=== PATIENT | female | born 1985 | race Caucasian/White ===

== ENCOUNTER 2018-03-01 10:25 | Emergency (ER) | payer BC, SELFPAY ==
[2018-03-01 10:26] VITALS: BP 118/72; PULSE 85; RESP 18; TEMP 37.7; O2SAT 100; BMI 34.1
--- NOTE | 2018-03-01 10:47 | ED.VISSUMM ---
- ER Visit Summary Date of Service: 03/01/18 Chief Complaint: Left flank pain History of Present Illness: The patient is a 32 F with a history of left flank pain. Associated nausea. No vomiting. No diarrhea. No fever. No dysuria. Patient states she was seen [facility] earlier today. Had a negative urine relation. She denies any hematuria. She denies any trauma. Physical Examination: Well-appearing young female. Vital signs are stable and afebrile. She does not look septic or toxic. She is no acute distress. H EENT exam unremarkable. Neck nontender. Lungs clear to auscultation bilaterally. Heart regular rhythm no murmur. Abdomen soft and nondistended. Normal bowel sounds no peritoneal signs. She does have tenderness in the left upper and left side of the abdomen. No signs of trauma. Normal bowel sounds. No masses. She is moving all 4 extremities. The neurovascular intact. Back nontender. Neurologically she is awake alert without focal motor deficits. Test Results: Seizures white count of 15 normal H&H. No bands. BMP normal. Serum test negative. The patient did not produce any urine. CT of the flank shows left-sided descending colon inflammation and diverticulosis consistent with acute diverticulitis. Read by the radiologist reviewed by me. No perforation. No abscess. I discussed all the test results with the patient. Emergency Department Course and Treatment: Patient with left flank pain with history of kidney stones. CT flank, labs and urinalysis will be obtained. Patient was offered IV pain meds and nausea meds she is reluctant to take anything at this time due to she is driving herself home. Treatment Plan: Cipro p.o. twice daily for 2 weeks. Flagyl p.o. 3 times daily for 2 weeks. Chicken for pain. And Motrin. Call and follow-up with her primary care physician next week. She has a scheduled appointment for a physical. Return if worse. Disposition: Discharge Impression: Acute left flank pain acute diverticulitis of the descending colon This note was generated with [employer] dictation software. It may contain incorrect words, spelling, and punctuation that were not noted in review of the chart prior to signing ED Disposition - Plan for ED Patient: Chief Complaint: Flank Pain Referrals: [facility],Out of [Primary Care Provider] -
[2018-03-01 11:07] LABS: Absolute Lymphocyte Count 1.44 X10^3/ul (0.83-4.51); Absolute Neutrophil Count 12.2 X10^3/uL (2.0-7.7); Basophil# 0.07 X10^3/uL; Basophil% 0.5 % (0-1); Eosinophil# 0.23 X10^3/uL; Eosinophils% 1.5 % (0-5); Hematocrit 40.2 % (37-47); Hemoglobin 14.5 g/dl (12.0-15.0); Lymphocyte # 1.44 X10^3/ul (4.0); Lymphocyte % 9.5 % (19-41); Mean Corp Hgb Conc 36.1 g/gl (32-36); Mean Corpuscular Hgb 30.3 pg (27.0-32.0); Mean Corpuscular Volume 84.1 fL (81-99); Mean Platelet Vol. 9.3 fl (6.2-12.0); Monocyte# 1.12 X10^3/uL; Monocyte% 7.4 % (0-10); Neutrophil # 12.24 X10^3/uL (2.7-7.7); Neutrophil % 80.8 % (47-70); POSITIVE COUNT NO; POSITIVE DIFFERENTIAL NO; POSITIVE MORPHOLOGY NO; Platelet Count 277 K/mm3 (150-450); RBC Distribution Width CV 12.4 % (11.6-14.6); RBC Distribution Width SD 37.3 fl (35.1-43.9); Red Blood Count 4.78 M/mm3 (4.2-5.4); White Blood Count 15.1 K/mm3 (4.4-11.0)
[2018-03-01 11:15] LABS: Anion Gap 6 (5-15); BUN 10 mg/dL (7-18); Calcium,Total 8.8 mg/dL (8.5-10.1); Chloride 103 mmol/L (98-107); Creatinine, Serum 0.71 mg/dL (0.55-1.02); EST Glomerular Filtration Rate 100 mL/min (>60); Est Glom Filt Rate - Afr Amer 121 mL/min (>60); Estimated Creatinine Clearance 89.14 ml/min; Glucose 89 mg/dL (74-106); Potassium 4.1 mmol/L (3.5-5.1); Sodium Level 138 mmol/L (136-145)
[2018-03-01 11:26] LABS: Pregnancy, Serum, hCG Quali. NEGATIVE Negative (0-9 Nonpreg)
--- NOTE | 2018-03-01 12:18 | ED.DEP ---
ED Disposition - Plan for ED Patient: Disposition: Home or Assisted Living Chief Complaint: Flank Pain Instructions: ED Diverticulitis Prescriptions: Hydrocodone/Acetaminophen [Bessie 5-325 Tablet] 1 ea PO Q4H PRN PRN #20 tab PRN Reason: Pain Metronidazole [Flagyl] 500 mg PO Q8H #42 tab Ciprofloxacin [Cipro] 500 mg PO BID #28 tab Referrals: [facility],Out of [Primary Care Provider] - 1 Week Additional Instructions: Call follow-up with your doctor next week. Motrin and Bessie as needed for pain. Cipro twice a day. Flagyl 3 times a day both for the next 2 weeks. Return if feeling a lot worse. Increasing pain.
--- NOTE | 2018-03-01 12:21 | DCINST.ED_ITS ---
ED Disposition - Plan for ED Patient: Disposition: Home or Assisted Living Chief Complaint: Flank Pain Instructions: ED Diverticulitis Prescriptions: Hydrocodone/Acetaminophen [[place] 5-325 Tablet] 1 ea PO Q4H PRN PRN #20 tab PRN Reason: Pain Metronidazole [Flagyl] 500 mg PO Q8H #42 tab Ciprofloxacin [Cipro] 500 mg PO BID #28 tab Referrals: [facility],Out of [Primary Care Provider] - 1 Week Additional Instructions: Call follow-up with your doctor next week. Motrin and [place] as needed for pain. Cipro twice a day. Flagyl 3 times a day both for the next 2 weeks. Return if feeling a lot worse. Increasing pain.
[2018-03-01] MEDS: metroNIDAZOLE 500 MG Tablet PO (12:22)
[2018-03-01] MEDS: Ciprofloxacin 500 MG Tablet PO (12:22)
== END 2018-03-01 12:32 | disposition home or self-care (01) ==
PROVIDERS: Emergency Provider Emergency Medicine
DX: K57.32 Diverticulitis of large intestine without perforation or abscess without bleeding (principal); E03.9 Hypothyroidism, unspecified; Z87.442 Personal history of urinary calculi; Z79.899 Other long term (current) drug therapy
CPT/HCPCS: 74176; 80048; 84703; 85025; 99283

== ENCOUNTER → 2018-04-18 11:00 | Outpatient (CLI) | payer BC, SELFPAY ==
[2018-04-23 14:40] LABS: HPV APTIMA, High Risk Negative (Negative)
== END ==
PROVIDERS: Referring Provider Nurse Practitioner Women's Health; Visit Provider Nurse Practitioner Women's Health
DX: Z12.4 Encounter for screening for malignant neoplasm of cervix (principal)
CPT/HCPCS: 88175; G0145

== ENCOUNTER → 2019-03-18 | Outpatient (CLI) | payer OTHER, SELFPAY ==
[2019-03-18 11:54] VITALS: BMI 33.8
== END | disposition home or self-care (01) ==
LOC: LABSPEC 14:49
PROVIDERS: Referring Provider Nurse Practitioner Women's Health; Visit Provider Nurse Practitioner Women's Health
DX: N89.8 Other specified noninflammatory disorders of vagina (principal)
CPT/HCPCS: 87070; 87205

== ENCOUNTER → 2019-03-21 15:22 | Outpatient (CLI) | payer OTHER, SELFPAY ==
[2019-03-18 11:54] VITALS: BMI 33.8
== END ==
PROVIDERS: Referring Provider Nurse Practitioner Women's Health; Visit Provider Nurse Practitioner Women's Health
DX: R10.2 Pelvic and perineal pain (principal)

== ENCOUNTER → 2020-03-09 16:59 | Outpatient (CLI) | payer OTHER, SELFPAY ==
[2019-07-10 10:17] VITALS: BMI 33.8
[2020-03-09 18:02] LABS: Absolute Lymphocyte Count 2.24 X10^3/uL (0.83-4.51); Absolute Neutrophil Count 6.9 X10^3/uL (2.0-7.7); Basophil# 0.07 X10^3/uL; Basophil% 0.7 % (0-1); Eosinophil# 0.42 X10^3/uL; Eosinophils% 4.1 % (0-5); Hematocrit 42.9 % (37-47); Lymphocyte # 2.24 X10^3/ul (4.0); Lymphocyte % 21.7 % (19-41); Mean Corp Hgb Conc 32.6 g/dL (32-36); Mean Corpuscular Volume 88.8 fL (81-99); Mean Platelet Vol. 9.6 fl (6.2-12.0); Monocyte# 0.67 X10^3/uL; Monocyte% 6.5 % (0-10); NRBC Flagged by Analyzer 0 % (0-5); Neutrophil # 6.86 X10^3/uL (2.7-7.7); Neutrophil % 66.6 % (47-70); Platelet Count 321 K/mm3 (150-450); RBC Distribution Width CV 12.4 % (11.6-14.6); RBC Distribution Width SD 40.3 fl (35.1-43.9); Red Blood Count 4.83 M/mm3 (4.2-5.4); White Blood Count 10.3 K/mm3 (4.4-11.0)
[2020-03-09 18:24] LABS: Vitamin B12 463 pg/mL (211-911); Vitamin D,25 Hydroxy 34.6 ng/mL
[2020-03-09 18:33] LABS: ALB/GLOB Ratio 1.1 RATIO (0.9-2.4); AST(SGOT) 12 U/L (15-37); Alanine Aminotransfer ALT/SGPT 24 U/L (13-56); Albumin, Serum 4.1 g/dL (3.2-5.0); Alkaline Phosphatase 63 U/L (45-117); Anion Gap 4 (5-15); BUN 19 mg/dL (7-18); BUN/Creat Ratio 23.5 RATIO (10-20); Calcium,Total 9.3 mg/dL (8.5-10.1); Chloride 105 mmol/L (98-107); Creatinine, Serum 0.81 mg/dL (0.55-1.02); EST Glomerular Filtration Rate 86 mL/min (>60); Est Glom Filt Rate - Afr Amer 104 mL/min (>60); Globulin 3.6 g/dL (2.2-4.2); Glucose 85 mg/dL (74-106); Potassium 3.6 mmol/L (3.5-5.1); Protein, Total 7.7 g/dL (6.4-8.2); Sodium Level 139 mmol/L (136-145); T4 Free Direct 0.38 ng/dL (0.76-1.46)
[2020-03-10 10:44] LABS: Free T3 1.6 pg/mL (2.18-3.98)
[2020-03-11 16:30] LABS: Thyroglobulin Antibody 1.3 IU/mL (0.0-0.9); Thyroid Peroxidase AB 284 IU/mL (0-34)
== END ==
PROVIDERS: PCP Family Medicine; Referring Provider Family Medicine; Visit Provider Family Medicine
DX: R53.83 Other fatigue (principal); E03.9 Hypothyroidism, unspecified
CPT/HCPCS: 36415; 80053; 82306; 82607; 84439; 84443; 84481; 85025; 86376; 86800

== ENCOUNTER → 2020-04-29 12:04 | Outpatient (CLI) | payer OTHER, SELFPAY ==
[2019-07-10 10:17] VITALS: BMI 33.8
[2020-04-29 15:35] LABS: Free T3 9.4 pg/mL (2.18-3.98)
== END ==
PROVIDERS: PCP Family Medicine; Referring Provider Family Medicine; Visit Provider Family Medicine
CPT/HCPCS: 36415; 84439; 84481

== ENCOUNTER → 2020-05-18 15:10 | Outpatient (CLI) | payer OTHER, SELFPAY ==
[2019-07-10 10:17] VITALS: BMI 33.8
[2020-05-18 17:29] LABS: Absolute Lymphocyte Count 1.61 X10^3/uL (0.83-4.51); Absolute Neutrophil Count 13.7 X10^3/uL (2.0-7.7); Basophil# 0.07 X10^3/uL; Basophil% 0.4 % (0-1); Eosinophil# 0.28 X10^3/uL; Eosinophils% 1.7 % (0-5); Hematocrit 42.9 % (37-47); Hemoglobin 13.9 g/dL (12.0-15.0); Lymphocyte # 1.61 X10^3/ul (4.0); Lymphocyte % 9.7 % (19-41); Mean Corp Hgb Conc 32.4 g/dL (32-36); Mean Corpuscular Hgb 27.9 pg (27.0-32.0); Monocyte# 0.98 X10^3/uL; Monocyte% 5.9 % (0-10); NRBC Flagged by Analyzer 0 % (0-5); Neutrophil # 13.66 X10^3/uL (2.7-7.7); Neutrophil % 81.9 % (47-70); Platelet Count 327 K/mm3 (150-450); RBC Distribution Width CV 11.9 % (11.6-14.6); RBC Distribution Width SD 37.2 fl (35.1-43.9); Red Blood Count 4.99 M/mm3 (4.2-5.4); White Blood Count 16.7 K/mm3 (4.4-11.0)
[2020-05-18 18:00] LABS: ALB/GLOB Ratio 1.1 RATIO (0.9-2.4); AST(SGOT) 20 U/L (15-37); Alanine Aminotransfer ALT/SGPT 35 U/L (13-56); Albumin, Serum 3.9 g/dL (3.2-5.0); Alkaline Phosphatase 93 U/L (45-117); Anion Gap 9 (5-15); BUN 15 mg/dL (7-18); BUN/Creat Ratio 22.7 RATIO (10-20); Chloride 100 mmol/L (98-107); Creatinine, Serum 0.66 mg/dL (0.55-1.02); EST Glomerular Filtration Rate 108 mL/min (>60); Est Glom Filt Rate - Afr Amer 131 mL/min (>60); Globulin 3.5 g/dL (2.2-4.2); Glucose 80 mg/dL (74-106); Potassium 4.3 mmol/L (3.5-5.1); Protein, Total 7.4 g/dL (6.4-8.2); Sodium Level 136 mmol/L (136-145)
== END ==
PROVIDERS: PCP Family Medicine; Referring Provider Family Medicine; Visit Provider Family Medicine
DX: K57.92 Diverticulitis of intestine, part unspecified, without perforation or abscess without bleeding (principal)
CPT/HCPCS: 36415; 80053; 85025

== ENCOUNTER → 2020-05-18 15:47 | Outpatient (CLI) | payer OTHER, SELFPAY ==
[2019-07-10 10:17] VITALS: BMI 33.8
--- NOTE | 2020-05-18 15:50 | CT_ITS ---
STUDY: CT ABDOMEN AND PELVIS WITH CONTRAST REASON FOR EXAM: Female, 34 years old. Pain. Evaluate for diverticulitis. RADIATION DOSAGE (If Supplied By Facility): CTDIvol = ( 15.02 ) mGy, DLP = ( 826.30 ) mGycm TECHNIQUE: Transaxial images were obtained from the dome of the diaphragm to the symphysis pubis with oral contrast. 100 ml of ISOVUE-300 contrast was administered. Sagittal and coronal images were reconstructed. Individualized dose optimization techniques were used for this CT. COMPARISON: None. FINDINGS: The visualized lung bases are clear. The visualized portions of the heart and pericardium are within normal limits. There are no calcified gallstones present. The liver is within normal limits. There are no suspicious hepatic lesions. The spleen is normal in size. The pancreas is within normal limits. The adrenal glands are within normal limits. There are no renal or ureteral stones. There is no hydronephrosis. There are no focal renal lesions. Normal visualized stomach. There is no bowel obstruction. There is an inflamed diverticulum in the distal transverse colon with associated wall thickening and inflammation. This is consistent with acute diverticulitis. The appendix is visualized and appears normal. There is an intrauterine device noted which appears off center within the uterus. The aorta is normal in caliber. There is no abdominal or pelvic free air, free fluid, fluid collection or lymphadenopathy. There are no destructive osseous lesions. CT/Abdomen/Pelvis WITH Contrast IMPRESSION: Acute diverticulitis in the distal transverse colon. No free air, free fluid or fluid collection. Intrauterine device noted which appears off center within the uterus. Further evaluation with ultrasound is recommended to evaluate the position. Electronically Signed: Lincoln Carrillo, at 18:15 EST Tel , Service support ,
== END ==
PROVIDERS: PCP Family Medicine; Referring Provider Family Medicine; Visit Provider Family Medicine
DX: K57.92 Diverticulitis of intestine, part unspecified, without perforation or abscess without bleeding (principal)
CPT/HCPCS: 74177; Q9967

== ENCOUNTER → 2020-05-21 16:41 | Outpatient (CLI) | payer OTHER, SELFPAY ==
[2019-07-10 10:17] VITALS: BMI 33.8
--- NOTE | 2020-05-21 16:45 | US_ITS ---
STUDY: ULTRASOUND OF THE FEMALE PELVIS - COMPLETE REASON FOR EXAM: Female, 34 years old. MALPOSITION OF IUD SEEN ON CT LMP: TECHNIQUE: Transvaginal TECHNICAL QUALITY: Adequate. COMPARISON: CAT scan 05/18/2020 FINDINGS: The uterus is anteverted and is in a midline position. The uterus measures 6.8 x 6.4 x 4 cm. Normal uterine cervix. The endometrium measures 5 mm in thickness, and is hyperechoic. There is no demonstrated endometrial mass. There is no demonstrated myometrial mass. I.U.D. - patient has an IUD however it appears to be within the lower uterine segment The right ovary is visualized. The right ovary measures 3.5 x 3 x 2 cm. There is a cyst measuring 1.5 x 1.3 x 1.2. There is no visualized right adnexal mass or complex lesion. There is normal arterial and normal venous vascularity. The left ovary is visualized. The left ovary measures 3.1 x 3 x 2.6 cm. There is a cyst measuring 1.7 x 1.7 x 1.7 cm. There is no visualized left adnexal mass or complex lesion. There is normal arterial and normal venous vascularity. There is mild fluid in the cul-de-sac. The pre void volume of the bladder was 65.56 ml. US/Transvaginal Non- IMPRESSION: Malpositioned IUD which appears to be within the lower uterine segment. Small bilateral ovarian cysts and mild fluid in the cul-de-sac possibly due to recent ovulation Electronically Signed: Morgan Dorsey MD at 17:48 EST , Service support ,
== END ==
PROVIDERS: PCP Family Medicine; Referring Provider Obstetrics & Gynecology; Visit Provider Obstetrics & Gynecology
DX: T83.32XA Displacement of intrauterine contraceptive device, initial encounter (principal)
CPT/HCPCS: 76830

== ENCOUNTER → 2020-06-21 14:40 | Outpatient (CLI) | payer OTHER, SELFPAY ==
[2020-05-31 14:24] VITALS: BMI 31.6
[2020-06-18 08:56] VITALS: BMI 31.5
--- NOTE | 2020-06-21 14:46 | US_ITS ---
STUDY: ULTRASOUND OF THE PELVIS CLINICAL: Female, 34 years old. PELVIC PAIN, WITH NEW IUD PLACEMENT TECHNIQUE: Transvaginal and transabdominal COMPARISON: None. FINDINGS: Normal uterine size measuring 6.7 x 5.8 x 3.9 cm in maximal craniocaudal dimension. It is retroverted. There are no myometrial masses. Normal endometrial thickness measuring 3 mm. It is hyperechoic There are no endometrial masses, and there is no fluid in the endometrial cavity. An IUD is noted within the lower uterine segment and the uterine cervix. Nabothian cysts. Normal right ovary, measuring 3.6 x 2.7 x 2.0 cm. There are multiple follicles without a dominant cyst. Normal left ovary, measuring 3.3 x 2.6 x 2.5 cm. There are multiple follicles without a dominant cyst. There is no free fluid in the pelvis. The urinary bladder has a volume of 689 cc. US/Transvaginal Non- IMPRESSION: IUD in the lower uterine segment/cervix. Nabothian cysts. Electronically Signed: Anthony Nuñez DO at 23:57 EST Tel [phone], Service support ,
--- NOTE | 2020-06-21 14:46 | US_ITS ---
STUDY: ULTRASOUND OF THE PELVIS CLINICAL: Female, 34 years old. PELVIC PAIN, WITH NEW IUD PLACEMENT TECHNIQUE: Transvaginal and transabdominal COMPARISON: None. FINDINGS: Normal uterine size measuring 6.7 x 5.8 x 3.9 cm in maximal craniocaudal dimension. It is retroverted. There are no myometrial masses. Normal endometrial thickness measuring 3 mm. It is hyperechoic There are no endometrial masses, and there is no fluid in the endometrial cavity. An IUD is noted within the lower uterine segment and the uterine cervix. Nabothian cysts. Normal right ovary, measuring 3.6 x 2.7 x 2.0 cm. There are multiple follicles without a dominant cyst. Normal left ovary, measuring 3.3 x 2.6 x 2.5 cm. There are multiple follicles without a dominant cyst. There is no free fluid in the pelvis. The urinary bladder has a volume of 689 cc. US/Pelvic (Non ) IMPRESSION: IUD in the lower uterine segment/cervix. Nabothian cysts. Electronically Signed: Anthony Nuñez DO at 23:57 EST Tel [phone], Service support ,
== END ==
PROVIDERS: PCP Family Medicine; Referring Provider Obstetrics & Gynecology; Visit Provider Obstetrics & Gynecology
DX: R10.2 Pelvic and perineal pain (principal)
CPT/HCPCS: 76830; 76856

== ENCOUNTER → 2020-06-28 14:30 | Outpatient (CLI) | payer OTHER, SELFPAY ==
[2020-06-22 15:42] VITALS: BMI 31.5
[2020-06-28 18:25] LABS: Free T3 5.4 pg/mL (2.18-3.98); T4 Free Direct 1.31 ng/dL (0.76-1.46)
== END ==
PROVIDERS: PCP Family Medicine; Visit Provider Family Medicine
DX: E03.8 Other specified hypothyroidism (principal)
CPT/HCPCS: 36415; 84439; 84481

== ENCOUNTER 2020-07-06 08:25 | Day surgery (SDC) | payer OTHER, SELFPAY ==
[2020-06-22 15:42] VITALS: BMI 31.5
[2020-06-29 13:16] LABS: Thyroid Stim Hormone (TSH) < 0.01 uIU/mL (0.358-3.74)
[2020-07-05 11:35] LABS: Absolute Lymphocyte Count 1.62 X10^3/uL (0.83-4.51); Absolute Neutrophil Count 3.2 X10^3/uL (2.0-7.7); Basophil# 0.07 X10^3/uL; Basophil% 1.2 % (0-1); Eosinophil# 0.23 X10^3/uL; Eosinophils% 4.1 % (0-5); Hemoglobin 13.8 g/dL (12.0-15.0); Lymphocyte # 1.62 X10^3/ul (4.0); Lymphocyte % 28.8 % (19-41); Mean Corp Hgb Conc 32.9 g/dL (32-36); Mean Corpuscular Volume 85.2 fL (81-99); Monocyte# 0.45 X10^3/uL; NRBC Flagged by Analyzer 0 % (0-5); Neutrophil # 3.24 X10^3/uL (2.7-7.7); Neutrophil % 57.7 % (47-70); Platelet Count 286 K/mm3 (150-450); RBC Distribution Width CV 12.5 % (11.6-14.6); RBC Distribution Width SD 38.7 fl (35.1-43.9); Red Blood Count 4.93 M/mm3 (4.2-5.4); White Blood Count 5.6 K/mm3 (4.4-11.0)
[2020-07-06] VITALS (9 sets, daily range): BP systolic 104–142; BP diastolic 63–92; PULSE 53–84; RESP 16–26; TEMP 36.8–37.1; O2SAT 98–100; BMI 30.6
[2020-07-06 09:01] LABS: Internal QC Validated? YES +Cl - CLEAR BKGD; Pregnancy, Urine Negative Negative
[2020-07-06] MEDS: Lactated Ringers 1,000 ML 100 ML IV ×2 (09:02→11:35)
--- NOTE | 2020-07-06 09:11 | HP.PCM_ITS ---
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 Is patient in pain?: No Allergies codeine Allergy (Verified 06/22/20 15:43) Unknown latex Allergy (Verified 06/22/20 15:43) Rash Medications fluticasone propionate 50 mcg/actuation nasal spray,suspension 1 spray INTRANASAL DAILY 04/18/18 [History Confirmed 06/22/20] fexofenadine 180 mg tablet 180 mg PO DAILY 03/18/19 [History Confirmed 06/22/20] levothyroxine 100 mcg tablet 100 mcg PO DAILY 05/24/20 [History Confirmed 06/22/20] liothyronine 25 mcg tablet 100 mcg PO DAILY tab 05/24/20 [History Confirmed 06/22/20] Is last menstrual period known: No Post menopausal: No Patient : No : No COUNTS INCLUDE 234 BEDS AT THE [facility] Medical History Diverticulitis large intestine (Acute) Diverticulitis (Acute) Thyroid disease (Acute) Surgical History History of open heart surgery (Acute) History of right heart catheterization (Acute) History of tonsillectomy (Acute) Hx of section (Acute) Family History Grandmother Breast cancer Other Diabetes Hypertension Social History (Updated 06/22/20 @ 16:[address] 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 she has had two expulsions now and is wanting permanent control. she has had irregular bleedign and some cramping, dyspareunia. she preivously had heavy periods prior to the iud Pregancy History 2 Elective abortions Hx Para 2 Spontaneous abortions Hx # Term Pregnancies Ectopic pregnancies Hx # Pregnancies Multiple births # of living children Past Pregnancies Del. Date Name GA/Weeks Outcome Route Bth Weight Gen Labor Lgth Anesthesia Del Locatn Provider FOB Unknown 2005 Guille Unknown 2007 Kaizer Unknown 2014 Pan (ADOPTED) ROS Const Constitutional: Denies fatigue, fever(s), headache(s), increased appetite, poor appetite, weight gain or weight loss Cardio Card: Denies chest pain Resp Resp: Denies cough or dyspnea GI GI: Reports as per HPI; denies abdominal pain, constipation, nausea or vomiting : Reports as per HPI; denies difficulty urinating, painful urination, nipple discharge, urinary frequency, urinary incontinence, urinary hesitancy, urinary urgency, vaginal discharge, vaginal dryness, vaginal odor or vaginal itching Skin Skin/Breast: Denies change in hair, breast lump, breast pain, breast skin changes or nipple discharge Exam Const General: cooperative, healthy appearing, comfortable, no acute distress, well developed Nutritional Appearance: average body habitus Orientation: alert HENMT Head: normal to inspection, normocephalic Neck Neck: normal visual inspection, trachea midline Thyroid: thyroid normal Resp Effort & Inspection: normal respiratory effort GI Inspection: normal to inspection, non-distended Palpation: soft, no hepatosplenomegaly General: bladder normal to palpation External Female Exam: normal external appearance, normal appearance of the urethra Urethra: normal appearance of the urethra, normal palpation, no discharge Speculum Exam - Vagina: normal appearance of the vagina, normal vaginal discharge Speculum Exam - Cervix: normal appearance of the cervix, nontender Bimanual Exam- Vagina & Uterus: normal bimanual exam, uterine size normal, bladder normal to palpation, uterine shape normal, No cervical tenderness, uterine mobility normal, uterine consistency normal, normal cervical palpation, uterus non-tender Bimanual Exam- Adnexa, other: normal adnexae, adnexae mobile, no adnexal masses, pelvic support normal Pelvic Support: normal Skin General: no rashes or lesions noted Office Procedures IUD Removal IUD Removal Details: Sign out documentation: Completed Procedure: Speculum placed in vagina, IUD string visualized and grasped with ring forceps. IUD easily removed in its entirety and patient tolerated well. Assessment & Plan Problems 1. Sterilization Z30.2 plan laparoscopic bilateral salpingectomy Plan After discussing the patient's diagnosis and treatment plan options, patient wishes to proceed with surgical management. I have discussed with the patient the risks, benefits, and alternatives of the procedure which include but are not limited to risks of anesthesia, bleeding, infection, possible damage to bowel, bladder, or surrounding vasculature which could lead to additional surgery to evaluate any complications. Patient agrees to procedure and wishes to proceed. ACOG/uptodate references given for additional information regarding procedure. Orders Orders: IUD Removal Today Z30.432 Coding Level of Care Code Off vis,est,level 4 Diagnoses Sterilization Z30.2 UPDATE- I have seen the patient and performed any clinically relevant updates to the history and physical exam. Jamia Fine MD
--- NOTE | 2020-07-06 10:00 | FALS_PTH ---
PATIENT: YAMILA RAMOS [place] [facility] [id number] AGE/SX: 34/F ROOM: RE07/06/[address]: Dr. Jamia Fine MD : [id number] BED: DIS: 07/06/2020 SPEC #: [id number] RECD: 07/06/20 12:46 STATUS: DEXTER REQ #: [id number] AUGIE: 07/06/20 10:[address]: Jamia Fine DEPT: SURGICAL PATHOLOGY RECD BY: Danielle Morley ENTERED: 07/06/20 13:10 SP TYPE: FALL TUBES OTHR DR: Dr. Isra Jacobsen MD Tissues: Fallopian tube Procedures: Surgery Specimen Level II HEADER OPERATION: Laparoscopic salpingectomy PRE-OP DIAGNOSIS: Sterilization TISSUE SUBMITTED: Bilateral fallopian tubes MICROSCOPIC DIAGNOSIS Bilateral fallopian tubes, salpingectomy: Bilateral fallopian tubes including fimbrial ends, no pathologic diagnosis. SJ:natasha 07/07/20 MICROSCOPIC DESCRIPTION Slides are reviewed. GROSS DESCRIPTION Received in fixative is one container labeled with the patient's name and designated bilateral fallopian tubes. The specimen consists of bilateral fallopian tubes including fimbrial ends measuring 4 cm in length and 0.6 cm in diameter and 4.5 cm in length and 0.5 cm in diameter. The fallopian tubes are not identified as right or left. Sections reveal unremarkable cut surfaces. [employer] P[employer] Inspector sections are submitted in two cassettes with each cassette containing one fallopian tube. / IGNACIO:natasha 07/06/20 TC:4 CPT: 46757 x2
--- NOTE | 2020-07-06 10:25 | OP.PCM_ITS ---
Problem List (1) Diverticulitis large intestine Status: Acute Qualifiers: (2) Sterilization Status: Acute Comment: plan laparoscopic bilateral salpingectomy Report of Operation Date of Procedure: 07/06/20 Pre-Operative Diagnosis: sterilization Post-Operative Diagnosis: same Surgery/Procedure Performed:: laparoscopic bilateral salpingectomy Description of Surgical Findings:: nl tubes ovaries uterus gauger delivery: Frandy Helton Type of Anesthesia:: General Special Medications: none Specimen's removed: tubes Drains: none Estimated Blood Loss (mL): 25 Fluids Replaced: crystalloid Description of Procedure: Patient was taken in the operating room and was placed under general anesthesia was prepped and draped in normal sterile fashion in the dorsal lithotomy position. Bladder was drained of clear urine and SCDs were on preoperatively. Uterus was sounded and a uterine manipulator was placed after dilating. Attention was then paid to the abdominal portion of the procedure and the umbilicus was elevated with towel clamps and injected with Marcaine and after a 5 mm incision was made and the Veress needle was entered into the abdomen confirmed to be intra-abdominal with a low opening pressure of less than 5 mmHg. Abdomen was insufflated with CO2 gas and a 5 mm optical trocar was placed under direct visualization. 5 mm ports were placed in the LLQ and suprapubically under direct visualization. Uterus was well visualized and bilateral fallopian tubes identified and bilateral tubes were elevated and transecting across the mesosalpinx and the attachment to the uterine corpus bilaterally the tubes were removed without complication. Excellent hemostasis was noted. Fallopian tubes were removed through the lower port sites without complication. Liver and upper abdomen were visualized notably within normal limits and no other gross abnormalities were seen in the abdomen. All instruments removed from the abdomen after gas was desufflated. Port sites were closed with 3-0 Monocryl Steri's and op sites were applied. All instruments removed from the vagina and patient was awoken and taken recovery in stable condition. Grafts/Implants Used: no - Complications none Multi Select Codes - Urinary/Genital Urinary/Genital CPT Codes: 72594 Laproscopic BS/O
--- NOTE | 2020-07-06 10:27 | DCINST_ITS ---
Discharge Diet: No Restrictions - Increase fluid intake for the next 48 hours. Discharge Activity: Return to Normal Activity, May Drive - when you are no longer taking narcotic pain medications., May Shower, May Take a Tub Bath - in 7 days Additional Activity Instructions:: Ambulate often the next week after surgery. Nothing in the vagina for 5 days. Call your doctor if your incision/area has: Continuous Slow Oozing, Sudden Increased Bleeding, Increased Pain/ Swelling, Increased Redness, Foul Smelling Discharge Call your doctor if you observe: Fever of 101 or Higher Allergies/Adverse Reactions: Allergies codeine Allergy (Verified 06/29/20 11:11) Unknown latex Allergy (Verified 06/29/20 11:11) Rash Medications to take at Discharge fluticasone propionate 50 mcg/actuation nasal spray,suspension 1 spray INTRANASAL DAILY PRN 04/18/18 fexofenadine 180 mg tablet 180 mg PO PRN PRN 03/18/19 levothyroxine 100 mcg tablet 100 mcg PO DAILY 05/24/20 liothyronine 25 mcg tablet 25 mcg PO DAILY tab 05/24/20 Inulin/Chromium Picolinate [Fiber Gummies] 1 ea PO DAILY 06/29/20 Naproxen [Naprosyn] 250 - 500 mg PO Q8H PRN PRN #30 tab 07/06/20 Oxycodone HCl/Acetaminophen [Percocet 5-325] 1 - 2 tablet PO Q6H PRN PRN 7 Days #15 tablet 07/06/20 The following prescriptions were given: Naproxen [Naprosyn] 250 - 500 mg PO Q8H PRN PRN #30 tab PRN Reason: MILD PAIN Transmission Status: Pending to [facility] Oxycodone HCl/Acetaminophen [Percocet 5-325] 1 - 2 tablet PO Q6H PRN PRN 7 Days #15 tablet PRN Reason: Pain Transmission Status: Sent to [facility] Primary Care Physician: Isra Jacobsen MD [Primary Care Provider] - Test Results: Test results from this visit will be discussed in further detail at your follow- up appointment, if applicable. Please Follow Up With: Jamia Fine MD - [phone]
[2020-07-06] MEDS: Bupivacaine 0.25% 30 ML Vial (10:40)
[2020-07-06] MEDS: Lubricating Jelly 60 GM Tube 30 GM TOPICAL (10:40)
== END 2020-07-06 13:31 | disposition home or self-care (01) ==
LOC: SDC 08:25 → AC 08:26
PROVIDERS: Anesthesiology; PCP Family Medicine; Referring Provider Family Medicine; Visit Provider Obstetrics & Gynecology
PROC: (CPT 58661; principal; 2020-07-06 09:45)
DX: Z30.2 Encounter for sterilization (principal); N92.0 Excessive and frequent menstruation with regular cycle; Z20.828 Contact with and (suspected) exposure to other viral communicable diseases; E06.9 Thyroiditis, unspecified; Z87.19 Personal history of other diseases of the digestive system; Z87.442 Personal history of urinary calculi; Z79.899 Other long term (current) drug therapy; Z87.891 Personal history of nicotine dependence
CPT/HCPCS: 00840; 58661; 36415; 81025; 84443; 85025; 86850; 86900; 86901; 87426; 88302; C9803; J7120; J2405

== ENCOUNTER → 2020-09-30 16:07 | Outpatient (CLI) | payer OTHER, SELFPAY ==
[2020-09-30 16:07] VITALS: BMI 31.5
[2020-09-30 18:20] LABS: Free T3 2.3 pg/mL (2.18-3.98); T4 Free Direct 1.14 ng/dL (0.76-1.46)
== END ==
PROVIDERS: PCP Family Medicine; Referring Provider Family Medicine; Visit Provider Family Medicine
DX: E03.8 Other specified hypothyroidism (principal)
CPT/HCPCS: 36415; 84439; 84443; 84481

== ENCOUNTER → 2021-01-04 16:41 | Outpatient (CLI) | payer OTHER, SELFPAY ==
[2020-09-30 16:07] VITALS: BMI 31.5
[2021-01-04 18:37] LABS: Free T3 2.2 pg/mL (2.18-3.98); T4 Free Direct 1.03 ng/dL (0.76-1.46); Thyroid Stim Hormone (TSH) 7.49 uIU/mL (0.358-3.74)
== END ==
PROVIDERS: PCP Family Medicine; Referring Provider Family Medicine; Visit Provider Family Medicine
DX: E03.8 Other specified hypothyroidism (principal)
CPT/HCPCS: 36415; 84439; 84443; 84481

== ENCOUNTER → 2021-04-06 12:15 | Outpatient (CLI) | payer OTHER, SELFPAY ==
[2021-04-06 15:20] LABS: Absolute Lymphocyte Count 1.65 X10^3/uL (0.83-4.51); Basophil# 0.09 X10^3/uL; Eosinophils% 2.3 % (0-5); Hematocrit 43.9 % (37-47); Hemoglobin 14.5 g/dL (12.0-15.0); Lymphocyte # 1.65 X10^3/ul (0.83-4.51); Lymphocyte % 19.1 % (19-41); Mean Corpuscular Hgb 29.2 pg (27.0-32.0); Mean Corpuscular Volume 88.3 fL (81-99); Mean Platelet Vol. 9.8 fl (6.2-12.0); Monocyte# 0.64 X10^3/uL; Monocyte% 7.4 % (0-10); NRBC Flagged by Analyzer 0 % (0-5); Neutrophil # 6.02 X10^3/uL (2.7-7.7); Neutrophil % 69.9 % (47-70); Platelet Count 342 K/mm3 (150-450); RBC Distribution Width CV 12.3 % (11.6-14.6); Red Blood Count 4.97 M/mm3 (4.2-5.4); White Blood Count 8.6 K/mm3 (4.4-11.0)
[2021-04-06 15:39] LABS: AST(SGOT) 27 U/L (15-37); Alanine Aminotransfer ALT/SGPT 46 U/L (13-56); Alkaline Phosphatase 62 U/L (45-117); Anion Gap 4 (5-15); BUN 21 mg/dL (7-18); Calcium,Total 8.9 mg/dL (8.5-10.1); Chloride 104 mmol/L (98-107); Cholesterol 245 mg/dL (200); Creatinine, Serum 0.88 mg/dL (0.55-1.02); EST Glomerular Filtration Rate 78 mL/min (>60); Est Glom Filt Rate - Afr Amer 94 mL/min (>60); Glucose 94 mg/dL (74-106); High Density Lipoprotein 60 mg/dL; Potassium 4.1 mmol/L (3.5-5.1); Sodium Level 136 mmol/L (136-145); T4 Free Direct 1.42 ng/dL (0.76-1.46); Thyroid Stim Hormone (TSH) 1.16 uIU/mL (0.358-3.74); Triglycerides 103 mg/dL; Very Low Density Lipoprotein 21 mg/dL (5-40)
== END ==
PROVIDERS: PCP Family Medicine; Referring Provider Family Medicine; Visit Provider Family Medicine
DX: E03.8 Other specified hypothyroidism (principal)
CPT/HCPCS: 36415; 80053; 80061; 84439; 84443; 85025

== ENCOUNTER 2021-06-03 12:56 | Outpatient (CLI) | payer OTHER, SELFPAY ==
[2021-06-03] MEDS: 0.9% Saline Lock 10 ML Syringe IV (13:18)
[2021-06-03 13:24] VITALS: BP 124/74; PULSE 59; RESP 18; TEMP 36.7; O2SAT 100; BMI 32.8
[2021-06-03 14:06] VITALS: BP 105/68; PULSE 55; RESP 16; TEMP 37.1; O2SAT 99
[2021-06-03 15:01] VITALS: BP 117/78; PULSE 56; RESP 16; TEMP 37.1; O2SAT 98
== END 2021-06-03 15:06 | disposition home or self-care (01) ==
LOC: MS3OUT 12:57 → MS3 12:58
PROVIDERS: PCP Family Medicine; Referring Provider Nurse Practitioner Adult Health; Visit Provider Nurse Practitioner Adult Health
DX: Z23 Encounter for immunization (principal); U07.1 COVID-19
CPT/HCPCS: J7050; M0245; Q0245; A4216

== ENCOUNTER 2021-09-29 13:40 | Outpatient (CLI) | payer OTHER, SELFPAY ==
[2021-09-29 15:15] LABS: Absolute Neutrophil Count 12.1 X10^3/uL (2.0-7.7); Basophil% 0.7 % (0-1); Eosinophil# 0.18 X10^3/uL; Eosinophils% 1.2 % (0-5); Hematocrit 41.7 % (37-47); Hemoglobin 14.2 g/dL (12.0-15.0); Lymphocyte % 10.6 % (19-41); Mean Corp Hgb Conc 34.1 g/dL (32-36); Mean Corpuscular Hgb 29.4 pg (27.0-32.0); Mean Corpuscular Volume 86.3 fL (81-99); Mean Platelet Vol. 9.6 fl (6.2-12.0); Monocyte# 1.03 X10^3/uL; Monocyte% 6.8 % (0-10); NRBC Flagged by Analyzer 0 % (0-5); Neutrophil # 12.09 X10^3/uL (2.7-7.7); Neutrophil % 80.3 % (47-70); Platelet Count 324 K/mm3 (150-450); RBC Distribution Width CV 12.2 % (11.6-14.6); RBC Distribution Width SD 38.5 fl (35.1-43.9); Red Blood Count 4.83 M/mm3 (4.2-5.4); White Blood Count 15.1 K/mm3 (4.4-11.0)
[2021-09-29 16:28] LABS: AST(SGOT) 13 U/L (15-37); Alanine Aminotransfer ALT/SGPT 29 U/L (13-56); Albumin, Serum 4.1 g/dL (3.2-5.0); Alkaline Phosphatase 84 U/L (45-117); Anion Gap 6 (5-15); BUN 15 mg/dL (7-18); BUN/Creat Ratio 19.2 RATIO (10-20); Calcium,Total 9.2 mg/dL (8.5-10.1); Chloride 100 mmol/L (98-107); Cholesterol 224 mg/dL (200); Creatinine, Serum 0.78 mg/dL (0.55-1.02); EST Glomerular Filtration Rate 88 mL/min (>60); Est Glom Filt Rate - Afr Amer 107 mL/min (>60); Globulin 4.2 g/dL (2.2-4.2); Glucose 70 mg/dL (74-106); High Density Lipoprotein 58 mg/dL; Protein, Total 8.3 g/dL (6.4-8.2); Sodium Level 134 mmol/L (136-145); T4 Free Direct 2.03 ng/dL (0.76-1.46); Thyroid Stim Hormone (TSH) 0.18 uIU/mL (0.358-3.74); Triglycerides 67 mg/dL; Very Low Density Lipoprotein 13 mg/dL (5-40)
== END 2021-09-29 23:59 | disposition home or self-care (01) ==
LOC: MFPLAB 13:41
PROVIDERS: PCP Family Medicine; Referring Provider Family Medicine; Visit Provider Family Medicine
DX: E66.9 Obesity, unspecified (principal); E03.8 Other specified hypothyroidism; E78.5 Hyperlipidemia, unspecified
CPT/HCPCS: 36415; 80053; 80061; 84439; 84443; 85025

== ENCOUNTER → 2021-12-28 | Outpatient (CLI) | payer OTHER, SELFPAY ==
[2021-12-28 15:36] LABS: ALB/GLOB Ratio 1.1 RATIO (0.9-2.4); AST(SGOT) 21 U/L (15-37); Alanine Aminotransfer ALT/SGPT 31 U/L (13-56); Alkaline Phosphatase 63 U/L (45-117); Anion Gap 8 (5-15); BUN 15 mg/dL (7-18); Calcium,Total 8.9 mg/dL (8.5-10.1); Chloride 100 mmol/L (98-107); Cholesterol 219 mg/dL (200); Creatinine, Serum 0.94 mg/dL (0.55-1.02); EST Glomerular Filtration Rate 71 mL/min (>60); Est Glom Filt Rate - Afr Amer 86 mL/min (>60); Globulin 3.5 g/dL (2.2-4.2); Glucose 89 mg/dL (74-106); High Density Lipoprotein 48 mg/dL; Potassium 4.4 mmol/L (3.5-5.1); Protein, Total 7.5 g/dL (6.4-8.2); Sodium Level 137 mmol/L (136-145); T4 Free Direct 1.02 ng/dL (0.76-1.46); Thyroid Stim Hormone (TSH) 2.75 uIU/mL (0.358-3.74); Triglycerides 104 mg/dL; Very Low Density Lipoprotein 21 mg/dL (5-40)
== END | disposition home or self-care (01) ==
LOC: MFPLAB 11:53
PROVIDERS: PCP Family Medicine; Referring Provider Family Medicine; Visit Provider Family Medicine
DX: E78.5 Hyperlipidemia, unspecified (principal); E03.8 Other specified hypothyroidism
CPT/HCPCS: 36415; 80053; 80061; 84439; 84443

== ENCOUNTER → 2022-07-20 | Outpatient (CLI) | payer OTHER, SELFPAY ==
[2022-07-20 12:20] LABS: Absolute Lymphocyte Count 1.73 X10^3/uL (0.83-4.51); Absolute Neutrophil Count 4.7 X10^3/uL (2.0-7.7); Basophil# 0.05 X10^3/uL; Basophil% 0.7 % (0-1); Eosinophil# 0.29 X10^3/uL; Eosinophils% 3.9 % (0-5); Hematocrit 39.8 % (37-47); Hemoglobin 13.4 g/dL (12.0-15.0); Lymphocyte # 1.73 X10^3/ul (0.83-4.51); Lymphocyte % 23.2 % (19-41); Mean Corp Hgb Conc 33.7 g/dL (32-36); Mean Corpuscular Hgb 29.5 pg (27.0-32.0); Mean Corpuscular Volume 87.7 fL (81-99); Mean Platelet Vol. 9.9 fl (6.2-12.0); Monocyte# 0.65 X10^3/uL; Monocyte% 8.7 % (0-10); NRBC Flagged by Analyzer 0 % (0-5); Neutrophil # 4.71 X10^3/uL (2.7-7.7); Neutrophil % 63.2 % (47-70); Platelet Count 271 K/mm3 (150-450); RBC Distribution Width CV 12.5 % (11.6-14.6); RBC Distribution Width SD 39.8 fl (35.1-43.9); Red Blood Count 4.54 M/mm3 (4.2-5.4); White Blood Count 7.5 K/mm3 (4.4-11.0)
[2022-07-20 13:05] LABS: ALB/GLOB Ratio 1.2 RATIO (0.9-2.4); AST(SGOT) 15 U/L (15-37); Alanine Aminotransfer ALT/SGPT 26 U/L (13-56); Albumin, Serum 3.8 g/dL (3.2-5.0); Alkaline Phosphatase 60 U/L (45-117); Anion Gap 5 (5-15); BUN 14 mg/dL (7-18); BUN/Creat Ratio 18.8 RATIO (10-20); Calcium,Total 8.9 mg/dL (8.5-10.1); Chloride 106 mmol/L (98-107); Cholesterol 257 mg/dL (200); Creatinine, Serum 0.74 mg/dL (0.55-1.02); EST Glomerular Filtration Rate 93 mL/min (>60); Est Glom Filt Rate - Afr Amer 112 mL/min (>60); Globulin 3.3 g/dL (2.2-4.2); Glucose 92 mg/dL (74-106); High Density Lipoprotein 51 mg/dL; Potassium 4.2 mmol/L (3.5-5.1); Protein, Total 7.1 g/dL (6.4-8.2); Sodium Level 138 mmol/L (136-145); T4 Free Direct 1.11 ng/dL (0.76-1.46); Thyroid Stim Hormone (TSH) 4.76 uIU/mL (0.358-3.74); Triglycerides 100 mg/dL; Very Low Density Lipoprotein 20 mg/dL (5-40)
== END | disposition home or self-care (01) ==
LOC: MFPLAB 11:16
PROVIDERS: PCP Family Medicine; Visit Provider Family Medicine
DX: E78.5 Hyperlipidemia, unspecified (principal); E03.8 Other specified hypothyroidism
CPT/HCPCS: 36415; 80053; 80061; 84439; 84443; 85025

== ENCOUNTER → 2022-08-02 | Outpatient (CLI) | payer OTHER, SELFPAY ==
[2022-08-07 18:32] LABS: HPV APTIMA, High Risk Negative (Negative)
== END | disposition home or self-care (01) ==
LOC: LABSPEC 15:03
PROVIDERS: PCP Family Medicine; Referring Provider Registered Nurse; Visit Provider Registered Nurse
DX: Z01.419 Encounter for gynecological examination (general) (routine) without abnormal findings (principal)
CPT/HCPCS: 87624; 88175; G0145

== ENCOUNTER → 2022-11-07 | Outpatient (CLI) | payer BC, SELFPAY ==
[2022-11-07 09:55] LABS: Absolute Lymphocyte Count 2.06 X10^3/uL (0.83-4.51); Absolute Neutrophil Count 5.5 X10^3/uL (2.0-7.7); Basophil# 0.13 X10^3/uL; Basophil% 1.5 % (0-1); Eosinophil# 0.35 X10^3/uL; Lymphocyte # 2.06 X10^3/ul (0.83-4.51); Lymphocyte % 23.7 % (19-41); Mean Corp Hgb Conc 32.6 g/dL (32-36); Mean Corpuscular Hgb 28.5 pg (27.0-32.0); Mean Corpuscular Volume 87.6 fL (81-99); Mean Platelet Vol. 9.5 fl (6.2-12.0); Monocyte# 0.59 X10^3/uL; Monocyte% 6.8 % (0-10); NRBC Flagged by Analyzer 0 % (0-5); Neutrophil # 5.52 X10^3/uL (2.7-7.7); Neutrophil % 63.5 % (47-70); Platelet Count 307 K/mm3 (150-450); RBC Distribution Width CV 12.7 % (11.6-14.6); RBC Distribution Width SD 40.8 fl (35.1-43.9); Red Blood Count 4.91 M/mm3 (4.2-5.4); White Blood Count 8.7 K/mm3 (4.4-11.0)
[2022-11-07 10:23] LABS: AST(SGOT) 25 U/L (15-37); Alanine Aminotransfer ALT/SGPT 45 U/L (13-56); Albumin, Serum 3.9 g/dL (3.2-5.0); Alkaline Phosphatase 63 U/L (45-117); Anion Gap 3 (5-15); BUN 16 mg/dL (7-18); BUN/Creat Ratio 20.5 RATIO (10-20); Calcium,Total 8.8 mg/dL (8.5-10.1); Chloride 103 mmol/L (98-107); Cholesterol 202 mg/dL (200); Creatinine, Serum 0.78 mg/dL (0.55-1.02); EST Glomerular Filtration Rate 88 mL/min (>60); Est Glom Filt Rate - Afr Amer 106 mL/min (>60); Globulin 3.8 g/dL (2.2-4.2); Glucose 91 mg/dL (74-106); High Density Lipoprotein 55 mg/dL; Potassium 4.2 mmol/L (3.5-5.1); Protein, Total 7.7 g/dL (6.4-8.2); Sodium Level 133 mmol/L (136-145); T4 Free Direct 1.22 ng/dL (0.76-1.46); Thyroid Stim Hormone (TSH) 1.67 uIU/mL (0.358-3.74); Triglycerides 143 mg/dL; Very Low Density Lipoprotein 29 mg/dL (5-40)
== END | disposition home or self-care (01) ==
LOC: MFPLAB 08:53
PROVIDERS: PCP Family Medicine; Referring Provider Family Medicine; Visit Provider Family Medicine
DX: E78.5 Hyperlipidemia, unspecified (principal); E03.8 Other specified hypothyroidism
CPT/HCPCS: 36415; 80053; 80061; 84439; 84443; 85025

== ENCOUNTER → 2023-03-30 | Outpatient (CLI) | payer BC, SELFPAY ==
[2023-03-30 17:45] LABS: Absolute Lymphocyte Count 2.02 X10^3/uL (0.83-4.51); Absolute Neutrophil Count 5.6 X10^3/uL (2.0-7.7); Basophil# 0.08 X10^3/uL; Basophil% 0.9 % (0-1); Eosinophil# 0.36 X10^3/uL; Eosinophils% 4.1 % (0-5); Hematocrit 40.1 % (37-47); Hemoglobin 13.2 g/dL (12.0-15.0); Lymphocyte # 2.02 X10^3/ul (0.83-4.51); Lymphocyte % 23.1 % (19-41); Mean Corp Hgb Conc 32.9 g/dL (32-36); Mean Corpuscular Hgb 29.1 pg (27.0-32.0); Mean Corpuscular Volume 88.5 fL (81-99); Mean Platelet Vol. 10.2 fl (6.2-12.0); Monocyte# 0.71 X10^3/uL; Monocyte% 8.1 % (0-10); NRBC Flagged by Analyzer 0 % (0-5); Neutrophil # 5.56 X10^3/uL (2.7-7.7); Neutrophil % 63.6 % (47-70); Platelet Count 280 K/mm3 (150-450); RBC Distribution Width CV 12.4 % (11.6-14.6); Red Blood Count 4.53 M/mm3 (4.2-5.4); White Blood Count 8.8 K/mm3 (4.4-11.0)
[2023-03-30 18:43] LABS: ALB/GLOB Ratio 1.1 RATIO (0.9-2.4); AST(SGOT) 15 U/L (15-37); Alanine Aminotransfer ALT/SGPT 20 U/L (13-56); Albumin, Serum 3.7 g/dL (3.2-5.0); Alkaline Phosphatase 56 U/L (45-117); Anion Gap 7 (5-15); BUN 16 mg/dL (7-18); BUN/Creat Ratio 21.5 RATIO (10-20); Calcium,Total 8.7 mg/dL (8.5-10.1); Chloride 109 mmol/L (98-107); Cholesterol 187 mg/dL (200); Creatinine, Serum 0.74 mg/dL (0.55-1.02); EST Glomerular Filtration Rate 92 mL/min (>60); Est Glom Filt Rate - Afr Amer 112 mL/min (>60); Globulin 3.4 g/dL (2.2-4.2); Glucose 90 mg/dL (74-106); High Density Lipoprotein 44 mg/dL; Potassium 3.8 mmol/L (3.5-5.1); Protein, Total 7.1 g/dL (6.4-8.2); Sodium Level 140 mmol/L (136-145); T4 Free Direct 1.58 ng/dL (0.76-1.46); Thyroid Stim Hormone (TSH) 0.18 uIU/mL (0.358-3.74); Triglycerides 101 mg/dL; Very Low Density Lipoprotein 20 mg/dL (5-40)
== END | disposition home or self-care (01) ==
LOC: MTLAB 14:20
PROVIDERS: PCP Family Medicine; Referring Provider Family Medicine; Visit Provider Family Medicine
DX: E03.8 Other specified hypothyroidism (principal); E78.5 Hyperlipidemia, unspecified
CPT/HCPCS: 36415; 80053; 80061; 84439; 84443; 85025

== ENCOUNTER → 2023-07-04 | Outpatient (CLI) | payer BC, SELFPAY ==
[2023-07-04 15:34] LABS: Absolute Lymphocyte Count 1.81 X10^3/uL (0.83-4.51); Absolute Neutrophil Count 5.6 X10^3/uL (2.0-7.7); Basophil# 0.08 X10^3/uL; Eosinophils% 2.4 % (0-5); Hematocrit 40.4 % (37-47); Hemoglobin 13.1 g/dL (12.0-15.0); Lymphocyte # 1.81 X10^3/ul (0.83-4.51); Mean Corp Hgb Conc 32.4 g/dL (32-36); Mean Corpuscular Hgb 29.3 pg (27.0-32.0); Mean Corpuscular Volume 90.4 fL (81-99); Mean Platelet Vol. 10.3 fl (6.2-12.0); Monocyte# 0.54 X10^3/uL; Monocyte% 6.6 % (0-10); NRBC Flagged by Analyzer 0 % (0-5); Neutrophil # 5.56 X10^3/uL (2.7-7.7); Neutrophil % 67.8 % (47-70); Platelet Count 298 K/mm3 (150-450); RBC Distribution Width CV 12.9 % (11.6-14.6); RBC Distribution Width SD 42.8 fl (35.1-43.9); Red Blood Count 4.47 M/mm3 (4.2-5.4); White Blood Count 8.2 K/mm3 (4.4-11.0)
[2023-07-04 16:21] LABS: AST(SGOT) 21 U/L (15-37); Alanine Aminotransfer ALT/SGPT 22 U/L (13-56); Albumin, Serum 3.8 g/dL (3.2-5.0); Alkaline Phosphatase 45 U/L (45-117); Anion Gap 9 (5-15); BUN 18 mg/dL (7-18); BUN/Creat Ratio 17.5 RATIO (10-20); Calcium,Total 8.6 mg/dL (8.5-10.1); Chloride 104 mmol/L (98-107); Cholesterol 203 mg/dL (200); Creatinine, Serum 1.03 mg/dL (0.55-1.02); EST Glomerular Filtration Rate 63 mL/min (>60); Est Glom Filt Rate - Afr Amer 77 mL/min (>60); Globulin 3.7 g/dL (2.2-4.2); Glucose 97 mg/dL (74-106); High Density Lipoprotein 66 mg/dL; Potassium 3.7 mmol/L (3.5-5.1); Protein, Total 7.5 g/dL (6.4-8.2); Sodium Level 140 mmol/L (136-145); T4 Free Direct 1.55 ng/dL (0.76-1.46); Thyroid Stim Hormone (TSH) 0.29 uIU/mL (0.358-3.74); Triglycerides 54 mg/dL; Very Low Density Lipoprotein 11 mg/dL (5-40)
== END | disposition home or self-care (01) ==
LOC: MTLAB 12:58
PROVIDERS: PCP Family Medicine; Referring Provider Family Medicine; Visit Provider Family Medicine
DX: E03.8 Other specified hypothyroidism (principal); E78.5 Hyperlipidemia, unspecified
CPT/HCPCS: 36415; 80053; 80061; 84439; 84443; 85025

== ENCOUNTER → 2023-08-31 | Outpatient (CLI) | payer BC, SELFPAY ==
--- OUTSIDE RECORDS SUMMARY | 2023-08-31 07:59 | XMS RPT_ITS | CCD ---
Author Name Unknown Address [address] [place] [address] Organization [facility] Care Team Providers Care Telesales Team Leader Name Role Phone RAMIRO, KELLY Unavailable Unavailable PAMROBBIN NEWELL Unavailable Unavail able RAMIRO, KELLY Unavailable Unavailable RAMIRO, KELLY Unavailable Unavailable Allergies Allergy Classification Reported Allergen(s) Allergy Type Date of Onset Reaction(s) Facility (1 source) codeine; Translations: [CODEINE] Drug Allergy [facility] (1 source) Latex; Translations: [LATEX] Propensity to adverse reactions to drug (disorder) [facility] Problems Problem Classification Problem Date Documented Date Episodic/Chronic Diverticulosis and diverticulitis (1 source) Diverticulitis of intestine, part unspecified, without perforation or abscess without bleeding; Translations: [Diverticulitis of intestine, part unspecified, without perforation or abscess without bleeding] Onset: 03-08-2018 Chronic Results Test Name Value Interpretation Reference Range Facil ity Encounters Encounter Date Encounter Type Care Provider Facility Start: 04-15-2018 End: 04-16-2018 Patient encounter KELLY RUIBO [facility] Start: 03-08-2018 End: 03-13-2018 Patient encounter KELLY RUBIO [facility] Summary Purpose Family History No Family History Records Found Advance Directives No Advanced Directives Records Found Additional Source Comments INFORMATION SOURCE (unrecogn ized section and content) FOR RECORDS PERTAINING TO PATIENTS WHO ARE OR HAVE BEEN ENROLLED IN A CHEMICAL DEPENDENCY/SUBSTANCEABUSE PROGRAM, SOME INFORMATION MAY BE OMITTED. This clinical summary was aggregated from multiple sources. Caution should be exercised in using it in the provision of clinical care. This summary normalizes information from multiple sources, and as a consequence, information in this document may materially change the coding, format and clinical context of patient data. In addition, data may be omitted in some cases. CLINICAL DECISIONS SHOULD BE BASED ON THE PRIMARY CLINICAL RECORDS. [facility] [employer] [facility]. provides no warranty or guarantee of the accuracy or completeness of information in this document.
[2023-08-31 10:07] LABS: Absolute Lymphocyte Count 1.97 X10^3/uL (0.83-4.51); Basophil# 0.08 X10^3/uL; Eosinophil# 0.38 X10^3/uL; Eosinophils% 4.7 % (0-5); Hematocrit 41.2 % (37-47); Hemoglobin 13.4 g/dL (12.0-15.0); Lymphocyte # 1.97 X10^3/ul (0.83-4.51); Lymphocyte % 24.3 % (19-41); Mean Corp Hgb Conc 32.5 g/dL (32-36); Mean Corpuscular Hgb 29.7 pg (27.0-32.0); Mean Corpuscular Volume 91.4 fL (81-99); Mean Platelet Vol. 10.5 fl (6.2-12.0); Monocyte# 0.71 X10^3/uL; Monocyte% 8.7 % (0-10); NRBC Flagged by Analyzer 0 % (0-5); Neutrophil # 4.96 X10^3/uL (2.7-7.7); Neutrophil % 61.1 % (47-70); Platelet Count 286 K/mm3 (150-450); RBC Distribution Width CV 12.8 % (11.6-14.6); Red Blood Count 4.51 M/mm3 (4.2-5.4); White Blood Count 8.1 K/mm3 (4.4-11.0)
[2023-08-31 11:15] LABS: T4 Free Direct 1.02 ng/dL (0.76-1.46); Thyroid Stim Hormone (TSH) 1.94 uIU/mL (0.358-3.74)
== END | disposition home or self-care (01) ==
LOC: MTLAB 07:45
PROVIDERS: PCP Family Medicine; Referring Provider Registered Nurse; Visit Provider Registered Nurse
DX: E03.9 Hypothyroidism, unspecified (principal)
CPT/HCPCS: 36415; 84439; 84443; 85025

== ENCOUNTER → 2023-10-16 | Outpatient (CLI) | payer BC, SELFPAY ==
[2023-10-16 15:12] LABS: Absolute Lymphocyte Count 2.21 X10^3/uL (0.83-4.51); Absolute Neutrophil Count 8.6 X10^3/uL (2.0-7.7); Basophil# 0.11 X10^3/uL; Basophil% 0.9 % (0-1); Eosinophil# 0.44 X10^3/uL; Eosinophils% 3.6 % (0-5); Hematocrit 41.4 % (37-47); Hemoglobin 13.4 g/dL (12.0-15.0); Lymphocyte # 2.21 X10^3/ul (0.83-4.51); Lymphocyte % 17.9 % (19-41); Mean Corp Hgb Conc 32.4 g/dL (32-36); Mean Corpuscular Hgb 29.8 pg (27.0-32.0); Mean Platelet Vol. 10.7 fl (6.2-12.0); Monocyte# 0.92 X10^3/uL; Monocyte% 7.5 % (0-10); NRBC Flagged by Analyzer 0 % (0-5); Neutrophil # 8.61 X10^3/uL (2.7-7.7); Neutrophil % 69.7 % (47-70); Platelet Count 294 K/mm3 (150-450); RBC Distribution Width CV 12.7 % (11.6-14.6); RBC Distribution Width SD 43.1 fl (35.1-43.9); White Blood Count 12.3 K/mm3 (4.4-11.0)
[2023-10-16 16:00] LABS: ALB/GLOB Ratio 1.1 RATIO (0.9-2.4); AST(SGOT) 18 U/L (15-37); Alanine Aminotransfer ALT/SGPT 24 U/L (13-56); Albumin, Serum 3.8 g/dL (3.2-5.0); Alkaline Phosphatase 64 U/L (45-117); Anion Gap 6 (5-15); BUN 16 mg/dL (7-18); BUN/Creat Ratio 20.9 RATIO (10-20); Calcium,Total 8.9 mg/dL (8.5-10.1); Chloride 102 mmol/L (98-107); Cholesterol 207 mg/dL (200); Creatinine, Serum 0.77 mg/dL (0.55-1.02); EST Glomerular Filtration Rate 89 mL/min (>60); Est Glom Filt Rate - Afr Amer 108 mL/min (>60); Globulin 3.4 g/dL (2.2-4.2); Glucose 84 mg/dL (74-106); High Density Lipoprotein 65 mg/dL; Potassium 3.9 mmol/L (3.5-5.1); Protein, Total 7.2 g/dL (6.4-8.2); Sodium Level 137 mmol/L (136-145); T4 Free Direct 1.26 ng/dL (0.76-1.46); Thyroid Stim Hormone (TSH) 2.54 uIU/mL (0.358-3.74); Triglycerides 49 mg/dL; Very Low Density Lipoprotein 10 mg/dL (5-40)
== END | disposition home or self-care (01) ==
LOC: MTLAB 12:41
PROVIDERS: PCP Family Medicine; Referring Provider Family Medicine; Visit Provider Family Medicine
DX: E78.5 Hyperlipidemia, unspecified (principal); E03.8 Other specified hypothyroidism
CPT/HCPCS: 36415; 80053; 80061; 84439; 84443; 85025

== ENCOUNTER → 2024-04-15 | Outpatient (CLI) | payer BC, SELFPAY ==
[2024-04-15 10:08] LABS: Absolute Neutrophil Count 3.6 X10^3/uL (2.0-7.7); Basophil# 0.09 X10^3/uL; Basophil% 1.4 % (0-1); Eosinophils% 6.3 % (0-5); Hematocrit 39.3 % (37-47); Lymphocyte % 28.4 % (19-41); Mean Corp Hgb Conc 33.1 g/dL (32-36); Mean Corpuscular Hgb 30.1 pg (27.0-32.0); Mean Platelet Vol. 9.7 fl (6.2-12.0); Monocyte# 0.46 X10^3/uL; Monocyte% 7.3 % (0-10); NRBC Flagged by Analyzer 0 % (0-5); Neutrophil # 3.56 X10^3/uL (2.7-7.7); Neutrophil % 56.1 % (47-70); Platelet Count 276 K/mm3 (150-450); RBC Distribution Width CV 12.5 % (11.6-14.6); RBC Distribution Width SD 41.5 fl (35.1-43.9); Red Blood Count 4.32 M/mm3 (4.2-5.4); White Blood Count 6.3 K/mm3 (4.4-11.0)
[2024-04-15 10:30] LABS: ALB/GLOB Ratio 1.1 RATIO (0.9-2.4); AST(SGOT) 12 U/L (15-37); Alanine Aminotransfer ALT/SGPT 17 U/L (13-56); Albumin, Serum 3.8 g/dL (3.2-5.0); Alkaline Phosphatase 45 U/L (45-117); Anion Gap 5 (5-15); BUN 18 mg/dL (7-18); Calcium,Total 9.2 mg/dL (8.5-10.1); Chloride 106 mmol/L (98-107); Cholesterol 223 mg/dL (200); EST Glomerular Filtration Rate 65 mL/min (>60); Est Glom Filt Rate - Afr Amer 79 mL/min (>60); Globulin 3.4 g/dL (2.2-4.2); Glucose 92 mg/dL (74-106); High Density Lipoprotein 67 mg/dL; Potassium 4.2 mmol/L (3.5-5.1); Protein, Total 7.2 g/dL (6.4-8.2); Sodium Level 139 mmol/L (136-145); T4 Free Direct 1.05 ng/dL (0.76-1.46); Triglycerides 82 mg/dL; Very Low Density Lipoprotein 16 mg/dL (5-40)
== END | disposition home or self-care (01) ==
PROVIDERS: PCP Family Medicine; Referring Provider Family Medicine; Visit Provider Family Medicine
DX: E03.8 Other specified hypothyroidism (principal); E78.5 Hyperlipidemia, unspecified
CPT/HCPCS: 36415; 80053; 80061; 84439; 84443; 85025

== ENCOUNTER → 2024-09-02 | Outpatient (CLI) | payer BC, SELFPAY ==
[2024-09-02 17:06] LABS: Absolute Lymphocyte Count 2.21 X10^3/uL (0.83-4.51); Absolute Neutrophil Count 9.3 X10^3/uL (2.0-7.7); Basophil% 0.8 % (0-1); Eosinophil# 0.26 X10^3/uL; Hematocrit 41.9 % (37-47); Lymphocyte # 2.21 X10^3/ul (0.83-4.51); Lymphocyte % 17.4 % (19-41); Mean Corp Hgb Conc 33.4 g/dL (32-36); Mean Corpuscular Hgb 29.3 pg (27.0-32.0); Mean Corpuscular Volume 87.7 fL (81-99); Mean Platelet Vol. 10.2 fl (6.2-12.0); Monocyte# 0.75 X10^3/uL; Monocyte% 5.9 % (0-10); NRBC Flagged by Analyzer 0 % (0-5); Neutrophil # 9.31 X10^3/uL (2.7-7.7); Neutrophil % 73.3 % (47-70); Platelet Count 354 K/mm3 (150-450); RBC Distribution Width CV 12.5 % (11.6-14.6); RBC Distribution Width SD 40.1 fl (35.1-43.9); Red Blood Count 4.78 M/mm3 (4.2-5.4); White Blood Count 12.7 K/mm3 (4.4-11.0)
[2024-09-04 04:07] LABS: Thyroid Peroxidase AB 139 IU/mL (0-34)
[2024-09-04 14:54] LABS: Vitamin D,25 Hydroxy 29.4 ng/mL
== END | disposition home or self-care (01) ==
PROVIDERS: PCP Family Medicine; Referring Provider Nurse Practitioner Women's Health; Visit Provider Nurse Practitioner Women's Health
DX: N92.0 Excessive and frequent menstruation with regular cycle (principal); Z13.21 Encounter for screening for nutritional disorder
CPT/HCPCS: 36415; 82306; 84439; 84443; 85025; 86376

== ENCOUNTER → 2024-09-22 | Outpatient (CLI) | payer BC, SELFPAY ==
--- NOTE | 2024-09-22 16:50 | US_ITS ---
EXAM: US Pelvis Transvaginal CLINICAL INDICATION: MENORRHAGIA TECHNIQUE: Real-time transvaginal pelvic ultrasound with image documentation. Transvaginal imaging was used for better evaluation of the endometrium and adnexa. COMPARISON: No relevant prior studies available. FINDINGS: UTERUS/CERVIX: Retroverted uterus. Nabothian cysts in the cervix. No myometrial mass. The uterus measures 8.4 x 6.1 x 4.6 cm. The endometrial stripe measures 0.76 cm in thickness. RIGHT OVARY: Unremarkable. Normal blood flow. The right ovary measures 2.6 x 2.7 x 2.5 cm. LEFT OVARY: Unremarkable. Normal blood flow. The left ovary measures 4.0 x 2.5 x 2.5 cm. FREE FLUID: No free fluid. BLADDER: Empty bladder which cannot be evaluated with this probe. US/Pelvic w/ Transvaginal IMPRESSION: No acute findings in the pelvis. Reading [facility]
== END | disposition home or self-care (01) ==
LOC: US 16:50
PROVIDERS: PCP Family Medicine; Referring Provider Nurse Practitioner Women's Health; Visit Provider Nurse Practitioner Women's Health
DX: N92.0 Excessive and frequent menstruation with regular cycle (principal)
CPT/HCPCS: 76830; 76856

== ENCOUNTER → 2024-09-26 | Outpatient (CLI) | payer BC, SELFPAY ==
--- NOTE | 2024-09-26 09:15 | BI_ITS ---
PROCEDURE: SCRN MAMM (CAD)W/LINDA BILAT REASON FOR EXAM: F, Age 39 y/o , SCREENING FOR BREAST CANCER. Family history of breast cancer in her paternal grandmother at age 75. TECHNIQUE: Bilateral screening digital breast tomosynthesis with 2D and 3D images. Computer aided detection. COMPARISON: 10/13/2016 FINDINGS: The breasts are heterogeneously dense which may obscure small masses. The mammogram demonstrates that the patient has dense breasts. Supplemental screening with whole breast ultrasound or MRI may be considered for further evaluation. No suspicious masses, areas of developing architectural distortion, or suspicious calcifications. BI/SCRN MAMM (CAD)W/LINDA BILAT IMPRESSION: There is no mammographic evidence of malignancy. BI-RADS 1: NEGATIVE. RECOMMEND ANNUAL MAMMOGRAPHIC SCREENING. Follow-up code: Routine Follow-up The patient will be notified of the results by letter. Reading Location: [id number]
== END | disposition home or self-care (01) ==
LOC: OPBI 08:45
PROVIDERS: PCP Family Medicine; Referring Provider Nurse Practitioner Women's Health; Visit Provider Nurse Practitioner Women's Health
DX: Z12.31 Encounter for screening mammogram for malignant neoplasm of breast (principal); Z80.3 Family history of malignant neoplasm of breast
CPT/HCPCS: 77063; 77067

== ENCOUNTER → 2024-10-02 | Outpatient (CLI) | payer BC, SELFPAY ==
[2024-10-02 12:14] LABS: Absolute Neutrophil Count 4.8 X10^3/uL (2.0-7.7); Basophil# 0.09 X10^3/uL; Basophil% 1.1 % (0-1); Eosinophil# 0.44 X10^3/uL; Eosinophils% 5.6 % (0-5); Hematocrit 39.4 % (37-47); Hemoglobin 13.2 g/dL (12.0-15.0); Lymphocyte % 24.2 % (19-41); Mean Corp Hgb Conc 33.5 g/dL (32-36); Mean Corpuscular Hgb 29.7 pg (27.0-32.0); Mean Corpuscular Volume 88.5 fL (81-99); Mean Platelet Vol. 10.1 fl (6.2-12.0); Monocyte# 0.56 X10^3/uL; Monocyte% 7.1 % (0-10); NRBC Flagged by Analyzer 0 % (0-5); Neutrophil # 4.84 X10^3/uL (2.7-7.7); Neutrophil % 61.7 % (47-70); Platelet Count 321 K/mm3 (150-450); RBC Distribution Width CV 12.7 % (11.6-14.6); RBC Distribution Width SD 41.5 fl (35.1-43.9); Red Blood Count 4.45 M/mm3 (4.2-5.4); White Blood Count 7.9 K/mm3 (4.4-11.0)
[2024-10-02 13:20] LABS: Cholesterol 191 mg/dL (<=200); High Density Lipoprotein 59 mg/dL; Low Density Lipoprotein Calc. 116 mg/dL; Triglycerides 83 mg/dL; Very Low Density Lipoprotein 17 mg/dL (5-40); cholesterol:hdl ratio screen 3.25
[2024-10-02 13:38] LABS: ALB/GLOB Ratio 1.6 RATIO (0.9-2.4); AST(SGOT) 20 U/L (<=31); Alanine Aminotransfer ALT/SGPT 17 U/L (<=34); Albumin, Serum 4.4 g/dL (3.5-5.0); Alkaline Phosphatase 59 U/L (35-104); Anion Gap 11 (5-15); BUN 15 mg/dL (4-19); BUN/Creat Ratio 17.6 RATIO (10-20); Calcium,Total 9.1 mg/dL (7.6-11.0); Carbon Dioxide 24.6 mmol/L (21.0-32.0); Chloride 105 mmol/L (98-108); Creatinine, Serum 0.86 mg/dL (0.70-1.20); EST Glomerular Filtration Rate 88 (>60); Globulin 2.8 g/dL (2.2-4.2); Glucose 85 mg/dL (70-99); Potassium 4.5 mmol/L (3.3-5.1); Protein, Total 7.2 g/dL (5.9-8.4); Sodium Level 140 mmol/L (133-145); Total Bilirubin 0.32 mg/dL (0.00-1.30)
== END | disposition home or self-care (01) ==
LOC: MTLAB 09:28
PROVIDERS: PCP Family Medicine; Referring Provider Family Medicine; Visit Provider Family Medicine
DX: E03.8 Other specified hypothyroidism (principal); E78.5 Hyperlipidemia, unspecified
CPT/HCPCS: 36415; 80053; 80061; 85025

== ENCOUNTER → 2024-11-05 | Outpatient (CLI) | payer BC, SELFPAY ==
--- NOTE | 2024-11-05 16:00 | EMB_PTH ---
PATIENT: YAMILA RAMOS LOC: [facility] U#:[id number] AGE/SX: 39/F ROOM: RE11/05/[address]: Dr. Karma Willett DO : 1985 BED: DIS: 11/05/2024 SPEC #: [id number] RECD: 11/06/24 09:05 STATUS: DEXTER VICENTE #: [id number] AUGIE: 11/05/24 16:[address]: Karma Willett DEPT: SURGICAL PATHOLOGY RECD BY: Vaibhav Cedillo ENTERED: 11/06/24 09:05 SP TYPE: ENDOM BX/C KIRILL DR: Dr. Isra Jacobsen MD Tissues: A - Endometrium, NOS Procedures: Surgery Specimen Level IV HEADER OPERATION: Endometrial bleeding PRE-OP DIAGNOSIS: Heavy menstrual bleeding TISSUE SUBMITTED: A- Endometrial curettings MICROSCOPIC DIAGNOSIS A. Endometrium, curettage: * Strips of endocervical epithelium with atypical squamous metaplasia - see note. * No endometrium seen. Note: Further evaluation of the atypical squamous metaplasia is recommended, if clinically indicated. A limited amount of superficial epithelium is present for evaluation. MICROSCOPIC DESCRIPTION Slides are reviewed. GROSS DESCRIPTION A. Received in formalin in a container labeled with the patient's name, date of , and endometrial lining is a scant amount of soft tissue submitted entirely for cellblock preparation in A1. [facility] 11-06-2024 CPT:70335
== END | disposition home or self-care (01) ==
LOC: LABSPEC 16:21
PROVIDERS: PCP Family Medicine; Referring Provider Obstetrics & Gynecology; Visit Provider Obstetrics & Gynecology
DX: N92.0 Excessive and frequent menstruation with regular cycle (principal)
CPT/HCPCS: 88305

== ENCOUNTER 2025-02-03 08:28 | Day surgery (SDC) | payer BC, SELFPAY ==
[2025-01-26 17:05] LABS: Hematocrit 39.3 % (37-47); Hemoglobin 13.4 g/dL (12.0-15.0); Mean Corp Hgb Conc 34.1 g/dL (32-36); Mean Corpuscular Volume 87.7 fL (81-99); Mean Platelet Vol. 9.5 fl (6.2-12.0); Platelet Count 317 K/mm3 (150-450); RBC Distribution Width CV 12.8 % (11.6-14.6); RBC Distribution Width SD 40.6 fl (35.1-43.9); Red Blood Count 4.48 M/mm3 (4.2-5.4); White Blood Count 11.8 K/mm3 (4.4-11.0)
[2025-01-26 17:54] LABS: Anion Gap 11 (5-15); BUN 17 mg/dL (4-19); BUN/Creat Ratio 16.2 RATIO (10-20); Calcium,Total 9.4 mg/dL (7.6-11.0); Carbon Dioxide 24.9 mmol/L (21.0-32.0); Chloride 104 mmol/L (98-108); Glucose 86 mg/dL (70-99); Magnesium 2.1 mg/dL (1.5-2.2); Potassium 4.1 mmol/L (3.3-5.1)
[2025-02-03] VITALS (9 sets, daily range): BP systolic 105–138; BP diastolic 59–87; PULSE 57–72; RESP 14–18; TEMP 36.1–36.8; O2SAT 97–100; BMI 29.9
--- NOTE | 2025-02-03 08:50 | PCM.PRE.AN2 ---
ASA Classification* ASA Classification ASA Classification: 2 Assessment & Plan Anesthesia* Anesthesia Assessment Anesthesia Assessment: Discussed sedation and/or anesthesia options, risks, benefits, and alternatives with patient/parents/legal guardian/POA. Questions invited. The patient/parents/legal guardian/POA seems to understand and agrees to proceed with anesthesia plan. Reviewed the physical assessment, medical history, allergy history and patient home medications list prior to surgery/procedure/anesthetic and documented any changes. Performed airway and anesthesia risk assessments. Anesthesia Type Anesthesia Type: General History Source History Obtained from:: Patient and Chart Anesthesia Focused Assessment* Airway Assessment Mouth opens: >3 cm Mallampati Score: I Teeth Condition: Intact Neck Range of motion (ROM): Full ROM Labs Anesthesia Preop lab: CBC WBC 11.8 K/mm3 (4.4-11.0) H 01/26/25 16:46 01/26/25 RBC 4.48 M/mm3 (4.2-5.4) 01/26/25 16:46 01/26/25 Hgb 13.4 g/dL (12.0-15.0) 01/26/25 16:46 01/26/25 Hct 39.3 % (37-47) 01/26/25 16:46 01/26/25 Plt Count 317 K/mm3 (150-450) 01/26/25 16:46 01/26/25 CHEMISTRY Potassium 4.1 mmol/L (3.3-5.1) 01/26/25 16:45 01/26/25 Sodium 140 mmol/L (133-145) 01/26/25 16:45 01/26/25 Magnesium 2.1 mg/dL (1.5-2.2) 01/26/25 16:45 01/26/25 BUN 17 mg/dL (4-19) 01/26/25 16:45 01/26/25 Creatinine 1.02 mg/dL (0.70-1.20) 01/26/25 16:45 01/26/25 Glucose 86 mg/dL (70-99) 01/26/25 16:45 01/26/25 TSH 5.570 uIU/mL (0.300-4.200) H 01/26/25 16:45 01/26/25 COAG Urine Test Negative Negative 07/06/20 08:50 07/06/20 [facility] Negative 05/31/20 14:31 05/31/20 Pre-Assessment Diagnosis/Proposed Procedure Planned Operative Procedure(s): TOTAL ROBOTIC HYSTERCTOMY, CYSTOSCOPY Anesthesia History 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 When Was Last Pacemaker Check QUESTION #4 FULL TEXT: You/Your Family Experience fever (hyperthermia) with Anesthesia Last Oral Intake Last Oral intake: Last Oral Intake NPO since Meds taken in AM with sips of water? Meds patient instructed to take am of surgery PONV PONV - terra cotta setter: PONV - terra cotta setter Female Yes 01/20/25 08:26 HX of Motion Sickness No 01/20/25 08:26 HX of N/V After Surgery Yes 01/20/25 08:26 Non-Smoker Yes 01/20/25 08:26 Duration of Surgery greater Yes 01/20/25 08:26 than 60 minutes Number of Risk Factors 4 01/20/25 08:26 PONV Score Severe Risk 01/20/25 08:26 Height & Weight Height & Weight: Anesthesia: Height & Weight Height 5 ft 3 in 02/02/25 08:48 Weight: 76.204 kg 02/02/25 08:48 Respiratory Assessment Respiratory Assessment - terra cotta setter: Respiratory Tract Infection Hx - terra cotta setter Hx Respiratory Tract Infection No 01/20/25 08:26 STOP Sleep Apnea STOP Sleep Apnea - terra cotta setter: STOP Sleep Apnea - terra cotta setter Hx Hypertension No 01/20/25 08:26 Hx Sleep Apnea No 01/20/25 08:26 CPAP BIPAP Do you snore loudly (louder No 01/20/25 08:26 than talking or can be heard Do you often feel tired/ No 01/20/25 08:26 fatigued/ sleepy during daytime? Has anyone observed you stop No 01/20/25 08:26 breathing during sleep? STOP Results Negative 01/20/25 08:26 QUESTION #5 FULL TEXT : Do you snore loudly (louder than talking or can be heard through closed doors)? 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 Specify any problems Hx of Preganancy in last 3 No 01/20/25 08:26 Months Nurse Filling Out Transfusion [id number] 01/20/25 08:26 & Questions: Date: 01/20/25 01/20/25 08:26 Time: 08:29 01/20/25 08:26 Patient unable to answer at this time (ie. confused, unrespo /Reproduction History /Reproductive History - terra cotta setter: /Reproductive Hx- terra cotta setter Hx Now Gestational Age (in weeks): EDC: Hx Hx Para Hx Section SAB No 01/26/25 16:01 Active Medications Active Medications: Current Medications Generic Name Dose Route Start Last Admin Trade Name Freq PRN Reason Stop Dose Admin Lactated Ringer's 1,000 mls @ 40 mls/hr 02/03/25 07:10 IV .Q25H AMBER Lactated Ringer's 1,000 mls @ 70 mls/hr 02/03/25 07:10 IV .[id number] AMBER Insulin Human Lispro 0 unit 02/03/25 07:10 Insulin Lispro 100 Unit/Ml Insuln.Pen SC 02/03/25 13:00 Q4H PRN PRN BG >/= 180, SEE PROTOCOL Protocol PFSH Medical History Cardiology follow-up encounter Wears contact lenses Wears glasses Depression Anxiety Alcohol use Marijuana use Former smoker Diverticulitis large intestine Diverticulitis Thyroid disease Home Medications ?Medication ?Instructions ?Recorded ?Last Taken ?Type buspirone 15 mg tablet 15 mg PO BID 01/20/25 Unknown History levothyroxine 125 mcg tablet 125 mcg PO DAILY 01/20/25 Unknown History Allergy/AdvReac Type Severity Reaction Status Date / Time codeine Allergy Unknown Verified 01/26/25 16:00 latex Allergy Rash Verified 01/26/25 16:00 Family History Grandmother Breast cancer Other Diabetes Hypertension Surgical History History of bilateral salpingectomy Hx of section History of open heart surgery History of right heart catheterization History of tonsillectomy Social History adopted: No household members: spouse, children and foster family number of children: 2 current occupational status: employed 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
[2025-02-03] MEDS: Magnesium 1 GM over 15 mins IV (09:12)
[2025-02-03] MEDS: Lactated Ringers 1,000 ML 40 ML IV (09:12)
--- NOTE | 2025-02-03 09:25 | HP.PCM_ITS ---
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 Required: No Is patient in pain?: No Allergies codeine Allergy (Verified 01/26/25 16:00) Unknownlatex Allergy (Verified 01/26/25 16:00) Rash Medications ?Medication ?Instructions ?Recorded ?Confirmed ?Type buspirone 15 mg tablet 15 mg PO BID 01/20/25 01/26/25 History levothyroxine 125 mcg tablet 125 mcg PO DAILY 01/20/25 01/26/25 Histo ry Is last menstrual period known: Yes Last Menstrual Period: 01/05/25 Post menopausal: No Patient : No : No PFSH Medical History Cardiology follow-up encounter Wears contact lenses Wears glasses Depression Anxiety Alcohol use Marijuana use Former smoker Diverticulitis large intestine Diverticulitis Thyroid disease Surgical History History of bilateral salpingectomy Hx of section History of open heart surgery History of right heart catheterization History of tonsillectomy Family History Grandmother Breast cancerOther Diabetes Hypertension Social History adopted: No household members: spouse, children and foster family number of children: 2 current occupational status: employed 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 She presents for a hysterectomy procedure. She has very heavy menses and tried 2 IUD that spontaneously expelled. She was offered ablation and declines. OCPs make her feel worse. ultrasound is as follows: EXAM: US Pelvis Transvaginal CLINICAL INDICATION: MENORRHAGIA TECHNIQUE: Real-time transvaginal pelvic ultrasound with image documentation. Transvaginal imaging was used for better evaluation of the endometrium and adnexa. COMPARISON: No relevant prior studies available. FINDINGS: UTERUS/CERVIX: Retroverted uterus. Nabothian cysts in the cervix. No myometrial mass. The uterus measures 8.4 x 6.1 x 4.6 cm. The endometrial stripe measures 0.76 cm in thickness. RIGHT OVARY: Unremarkable. Normal blood flow. The right ovary measures 2.6 x 2.7 x 2.5 cm. LEFT OVARY: Unremarkable. Normal blood flow. The left ovary measures 4.0 x 2.5 x 2.5 cm. FREE FLUID: No free fluid. BLADDER: Empty bladder which cannot be evaluated with this probe. US/Pelvic w/ Transvaginal IMPRESSION: No acute findings in the pelvis. Female Reproductive History Last Menstrual Period: 01/05/25 History 2 Elective abortions Hx Para 2 Spontaneous abortions Hx # Term Pregnancies Ectopic pregnancies Hx # Pregnancies Multiple births # of living children Past Pregnancies Del. Date Name GA/Weeks Outcome Route Bth Weight Gen Labor Lgth Anesthesia Del Locatn Provider FOB Unknown 2005 Guille Unknown 2007 [place] Unknown 2014 Pan (ADOPTED) ROS Const ROS Unobtainable: All systems reviewed & are unremarkable except as noted in H Resp Resp: Reports system reviewed and no additional complaints, except as documented; Denies cough GI GI: Reports as per HPI Psych Psych: Reports system reviewed and no additional complaints, except as documented Exam Const General: cooperative, healthy appearing, comfortable and no acute distress Resp Effort & Inspection: normal respiratory effort Skin General: no rashes or lesions noted Psych Appearance: grossly normal Speech and Movement: speech and movement normal Coding Level of Care Code Off vis,est,level 4 Diagnoses Menorrhagia with regular cycle N92.0 Menorrhagia type: with regular cycle Assessment and Plan Assessment and Plan (1) Heavy menstrual bleeding: Status: Acute Qualifiers: Menorrhagia type: with regular cycle Qualified Code(s): N92.0 - Excessive and frequent menstruation with regular cycle Plan: After discussing the patient's diagnosis and treatment plan options, patient wishes to proceed with surgical management. I have discussed with the patient the risks, benefits, and alternatives of the procedure which include but are not limited to risks of anesthesia, bleeding, infection, possible damage to bowel, bladder, or surrounding vasculature which could lead to additional surgery to evaluate any complications. Patient agrees to procedure and wishes to proceed. ACOG/uptodate references given for additional information regarding procedure. plan is for total robotic hysterectomy, bs (if left), cysto
--- NOTE | 2025-02-03 10:03 | PCM.DC ---
Discharge Instructions DC O2, CPAP, BIPAP needs Home O2 Discharge instructions: No Dressing / Incision Discharge Activity: May Shower May resume sexual activity in: 8 weeks Weight Bearing Status: Full weight bearing Lifting Restrictions: 10 pounds for 2 weeks Dressing / Incision Call your doctor if your incision/area has: Continuous Slow Oozing, Sudden Increased Bleeding, Increased Pain/ Swelling, Increased Redness and Foul Smelling Discharge Call your doctor if you observe: Fever of 101 or Higher, Using more than 1 pad per hour, Shortness of breath, Chest pain and Uncontrolled pain Suture Line Care: Avoid Pulling/Pushing and Avoid Pinching/Bending Remove Dressing in: 1 week (if present) Cleanse incision/area with: Soap & Water and Keep Dressing Clean & Dry Follow Up Care Please Follow Up With: Karma Willett DO When: Call to make an appointment with your doctor for a postop visit in 2 and 6 weeks Test Results: Test results from this visit will be discussed in further detail at your follow-up appointment, if applicable. Discharge Plan Admission Primary Reason for Your Visit: hysterectomy Attending Provider: Karma Willett Primary Care Provider: Isra Jacobsen Consulting Providers: Scout King Instructions Print Language: Swedish Discharge Orders/Prescriptions Prescriptions: New ibuprofen 800 mg tablet 800 mg PO Q8H PRN (Reason: pain) Qty: 30 0RF ondansetron HCl 4 mg tablet 4 mg PO Q6H PRN (Reason: nausea and vomiting) Qty: 20 0RF oxycodone-acetaminophen [Percocet] 5-325 mg tablet 1 tab PO Q4H PRN (Reason: pain) 7 Days Qty: 10 0RF Continued levothyroxine 125 mcg tablet 125 mcg PO DAILY buspirone 15 mg tablet 15 mg PO BID Other Ambulatory Orders: 12 Lead EKG (Routine) Timeframe: 20250122 Location: None Selected Ordered By: Dr. Scout King Referrals / Follow Up: Isra Jacobsen MD [Primary Care Provider] - Disposition Disposition (needs filled in before D/C Order can be placed): Home, Self Care
--- NOTE | 2025-02-03 10:35 | UT_PTH ---
PATIENT: YAMILA RAMOS LOC: [facility] [place] U#:[id number] AGE/SX: 39/F ROOM: RE02/03/[address]: Dr. Karma Willett DO : 1985 BED: DIS: 02/03/2025 SPEC #: [id number] RECD: 02/03/25 14:10 STATUS: DEXTER VICENTE #: [id number] AUGIE: 02/03/25 10:[address]: Karma Willett DEPT: SURGICAL PATHOLOGY RECD BY: Vaibhav Cedillo ENTERED: 02/03/25 14:36 SP TYPE: UTERUS OTHR DR: MD Dr. Isra Brush MD Tissues: A - Uterus, NOS Procedures: Surgery Specimen Level V HEADER OPERATION: ERAS, laparoscopic total robotic hysterectomy, cystoscopy PRE-OP DIAGNOSIS: Menorrhagia with regular cycle TISSUE SUBMITTED: A- Uterus, cervix MICROSCOPIC DIAGNOSIS A. Uterus, cervix, menorrhagia with regular cycle, laparoscopic total robotic hysterectomy: - Cervix: squamous metaplasia, dilated endocervical glands, mild hyperkeratosis. - Endometrium: inactive to weakly proliferative endometrium. - Myometrium: leiomyoma (0.6 cm), focal serosal endometriosis. MICROSCOPIC DESCRIPTION Slides are reviewed. GROSS DESCRIPTION A. Received in formalin labeled with the patient's name and date of . Designated as uterus, cervix is a 116.1 g, 7.5 x 5.8 x 4.5 cm uterus devoid of attached adnexa. The serosa is jeffers-pink and glistening with a 0.1 x 0.1 cm possible serosal nodule (posterior). The attached cervix is jeffers-yellow to pink and slightly irregular, measuring 3.3 x 3.1 cm; the 0.6 cm os is probe patent. Mucoid cystic spaces are present. The specimen is inked as follows: Vqecfjsy-sqwmuEgbdffsrv-uaiznAhnlvdrgkpt-orange Opening reveals a 4.9 x 2.6 cm endometrial canal lined by jeffers-pink granular endometrium with a 0.8 x 0.6 cm fibrotic, apparent scar (anterior) near the lower uterine segment; the endometrium measures up to 0.1 cm thick. The myometrium is jeffers-pink and trabeculated with a 0.6 cm intramural leiomyoma, measuring up to 2.7 cm thick. Antique Collector sections are submitted as follows: A1: Anterior cervixA2: Posterior cervixA3: Anterior endomyometriumA4: Posterior endomyometriumA5: Posterior serosa with possible noduleA6: Intramural leiomyomaA7: Anterior endomyometrium with apparent scar PR 02/03/2025 CPT:84956
--- NOTE | 2025-02-03 11:48 | OP.PCM_ITS ---
Problems Associated Problem List Diagnoses (1) Heavy menstrual bleeding: Multi Select Codes Urinary/Genital Urinary/Genital CPT Codes: 72241 Cystoscopy and 08594 TLH <250gr uterus Operative Report (Standard) Operative Information Date of Procedure: 02/03/25 Pre-Operative Diagnosis: menorrhagia Post-Operative Diagnosis: menorrhagia Surgery/Procedure Performed: total robotic hysterectomy, cystoscopy balloon artist: Yes Coagulating Bath Mixer: Huy Cassidy Tasks completed by wheelchair van operator first responder: Closing, Trocar and Retracting Additional finance assistant?: No Type of Anesthesia: General RN Documented Start/Stop Times: Operation Date: 02/03/25 10:35 Case Time Into Pre-Op 02/03/25 08:33 Out of Pre-Op 02/03/25 10:11 Anesthesia Start 02/03/25 10:14 Into Room 02/03/25 10:14 Procedure Start 02/03/25 10:38 Procedure Start Time: 10:38 Procedure Stop Time: 11:57 Select all DRAINS/GRAFTS/IMPLANTS that apply: None Estimated Blood Loss: 40cc Specimen collected: Yes Description of specimen(s) removed: uterus and cervix Description of surgery: Reason for surgery: This is a 39-year-old G2, P2 who presented to my office with history of heavy menses refractory to conservative therapy. The planned procedure is for a robotic hysterectomy the risks benefits and alternatives were discussed with the patient the patient had a clear understanding of the procedure and a consent form was signed. Procedure: The patient was placed in the dorsal low lithotomy position and prepped and draped in the normal sterile fashion both abdominally and in the perineum. Her legs were placed in stirrups a Camacho catheter was inserted into the urethra without difficulty. A weighted speculum was placed in the vagina and a single- tooth tenaculum was used to grasp the anterior lip of the cervix. An advincula uterine manipulator was inserted through the cervix without complication. It was then tied into place at the 2 and 10:00 locations on the cervix. Gloves were changed and attention was turned towards the abdomen. Approximately 23 cm above the pubic symphysis in the midline, and after Marcaine injection, a 8 mm incision was made. An 8 mm trocar was inserted through the laparoscope, then inserted into the abdomen under direct visualization using the laparoscope. Good abdominal placement was noted and no complications were appreciated. An air seal device was utilized to create pneumoperitoneum. At 12 cm lateral to the mi dline on the left and right sides 8 mm accessory ports were placed. Next a left upper quadrant 8 mm finance assistant port site was placed. The patient was placed in steep Trendelenburg position. The robot was docked. The hysterectomy was initiated first by taking down the round ligament on each side using the vessel sealer device. The fallopian tubes were surgically absent. The broad ligament was then and taken down using the vessel sealer device. Next the bladder flap was taken down without complication. This was done using monopolar cautery to the level of the cervical vaginal junction. After the bladder flap was created, uterine vessels were then isolated and cauterized using the vessel sealer device and EndoShears. At this point the uterine vessels were taken down further starting from the ascending branch, dissecting along the edges of the cervix to the level of the cervical vaginal junction with hemostasis appreciated. The cervical vaginal junction was then using monopolar cautery in a circumferential pattern across the superior aspect of the cervix. The specimen was delivered through the vagina and sent to pathology. The remaining vaginal cuff was then closed using a V lock suture. This was performed in a running technique. Excellent hemostasis was obtained and good closure was noted. Irrigation was then performed. All operative sites were n oted to be hemostatic. A cystoscopy was performed with a 70 degree cystoscope through the urethra into the bladder without complication. The bladder was instilled with approximately 250 cc of normal saline. Intraoperative images were made. Ureteral orifices and jets were identified. No suture material was appreciated in the bladder. The bladder was then drained and cystoscope was removed. The abdominal cavity was again examined and found to have a small capillary that was bleeding on the bladder flap. This was cauterized and hemoblast was applied. Excellent hemostasis was achieve. All operative sites were noted to be hemostatic. The trochars were removed under direct visualization without complication and pneumoperitoneum was reduced. At this point the skin was then closed using 4-0 Monocryl subcuticular stitch and sealed with surgical glue. The patient tolerated the procedure well sponge lap and needle counts were correct x2 the patient was taken to the recovery room in stable condition. Surgical Findings: normal uterus and ovaries. Complications Complications: No Admit VTE Documentation VTE Present on Admission: No VTE Mechan Device Prophylaxis: SCD's VTE Pharm Prophylaxis ordered?: No Reason prophylaxis not ordered: Treatment Not Indicated
--- NOTE | 2025-02-03 12:16 | PCM.POST.ANE ---
Anesthesia: Postop Eval I Current Vital Signs Temperature: 97.3 F Pulse Rate: 66 Blood Pressure: 117/79 Respiratory Rate: 16 Pulse Ox: 100 Oxygen Delivery Method: Room Air Assessment Airway patent: Yes Spontaneous unlabored respirations: Yes Mental status: Awake and Calm nausea: No Vomiting: No Anesthesia Complication: No Fluid Hydration Crystalloid volume administer (ml): 700 Total IV fluid infused: 700 Progress Note Anesthesia document: Postop Eval 1 completed: Yes
--- NOTE | 2025-02-03 12:36 | POSTOPAN2_ITS ---
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 [email or web address] Spontaneous unlabored Yes 02/03/25 12:16 [employer] SALES TECHNICAL [email or web address].SHOF respirations Mental status Awake,Calm 02/03/25 12:16 [employer] SALES TECHNICAL ENGINEER.SHOF nausea No 02/03/25 12:16 PRE SALES TECHNICAL ENGINEER.SHOF Vomiting No 02/03/25 12:16 PRE SALES TECHNICAL ENGINEER.SHOF Anesthesia Postop Eval I: Fluid Summary Crystalloid volume administer 700 02/03/25 12:16 [employer] SALES TECHNICAL ENGINEER.SHOF (ml) Colloids volume administered ( ml) Blood Product volume administered (ml) Total IV fluid infused 700 02/03/25 12:16 PRE SALES TECHNICAL ENGINEER.SHOF Anesthesia Postop Eval I: Summary Notes Anesthesia Complication No 02/03/25 12:16 PRE SALES TECHNICAL [email or web address].SHOF Anesthesia Complication Comment: Post-operative progress note Anesthesia: Postop Eval II Evaluation Mental status: Awake and Calm Pain Level: 1 nausea: No Vomiting: No Progress Note Post-operative progress note: Some urgency s/p straight cath Complications Anesthesia Complication: No
--- NOTE | 2025-02-03 12:36 | PCM.POSTANE2 ---
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 Spontaneous unlabored Yes 02/03/25 12:16 INTERNET SALES DIRECTOR.SHOF respirations Mental status Awake,Calm 02/03/25 12:16 INTERNET SALES DIRECTOR.SHOF nausea No 02/03/25 12:16 INTERNET SALES DIRECTOR.SHOF Vomiting No 02/03/25 12:16 INTERNET SALES DIRECTOR.SHOF Anesthesia Postop Eval I: Fluid Summary Crystalloid volume administer 700 02/03/25 12:16 INTERNET SALES DIRECTOR.SHOF (ml) Colloids volume administered ( ml) Blood Product volume administered (ml) Total IV fluid infused 700 02/03/25 12:16 INTERNET SALES DIRECTOR.SHOF Anesthesia Postop Eval I: Summary Notes Anesthesia Complication No 02/03/25 12:16 INTERNET SALES DIRECTOR.SHOF Anesthesia Complication Comment: Post-operative progress note Anesthesia: Postop Eval II Evaluation Mental status: Awake and Calm Pain Level: 1 nausea: No Vomiting: No Progress Note Post-operative progress note: Some urgency s/p straight cath Complications Anesthesia Complication: No
== END 2025-02-03 14:20 | disposition home or self-care (01) ==
LOC: SDC 08:31 → AC 08:31
PROVIDERS: Anesthesiology; PCP Family Medicine; Referring Provider Obstetrics & Gynecology; Visit Provider Obstetrics & Gynecology
PROC: 0UT94ZZ Resection of Uterus, Percutaneous Endoscopic Approach (ICD-10-PCS; CPT 58570; principal; 2025-02-03 10:15)
DX: N92.0 Excessive and frequent menstruation with regular cycle (principal); N88.0 Leukoplakia of cervix uteri; N80.03 Adenomyosis of the uterus; N87.0 Mild cervical dysplasia; D25.2 Subserosal leiomyoma of uterus; E07.9 Disorder of thyroid, unspecified; Z79.890 Hormone replacement therapy; Z79.899 Other long term (current) drug therapy; Z87.891 Personal history of nicotine dependence
CPT/HCPCS: 58570; S2900; 00840; 36415; 80048; 82962; 83735; 84443; 85027; 86850; 86900; 86901; 88307; 93005; J2405; J3475

== ENCOUNTER → 2025-02-12 | Outpatient (CLI) | payer BC, SELFPAY ==
[2025-02-12 18:05] LABS: Hematocrit 38.4 % (37-47); Hemoglobin 12.7 g/dL (12.0-15.0); Immature Granulocytes Count 0.030 X10^3/uL (0.0-0.0); Mean Corp Hgb Conc 33.1 g/dL (32-36); Mean Corpuscular Volume 89.3 fL (81-99); Mean Platelet Vol. 10.1 fl (6.2-12.0); NRBC Flagged by Analyzer 0 % (0-5); Platelet Count 314 K/mm3 (150-450); RBC Distribution Width CV 12.8 % (11.6-14.6); RBC Distribution Width SD 41.9 fl (35.1-43.9); Red Blood Count 4.30 M/mm3 (4.2-5.4); White Blood Count 10.5 K/mm3 (4.4-11.0)
[2025-02-12 18:58] LABS: AST(SGOT) 16 U/L (<=31); Alanine Aminotransfer ALT/SGPT 11 U/L (<=34); Albumin, Serum 4.3 g/dL (3.5-5.0); Alkaline Phosphatase 54 U/L (35-104); Anion Gap 13 (5-15); BUN 14 mg/dL (4-19); BUN/Creat Ratio 15.2 RATIO (10-20); Calcium,Total 9.7 mg/dL (7.6-11.0); Carbon Dioxide 25.0 mmol/L (21.0-32.0); Chloride 102 mmol/L (98-108); Cholesterol 185 mg/dL (<=200); Globulin 2.9 g/dL (2.2-4.2); Glucose 89 mg/dL (70-99); Low Density Lipoprotein Calc. 118 mg/dL; Potassium 3.9 mmol/L (3.3-5.1); Triglycerides 94 mg/dL; Very Low Density Lipoprotein 19 mg/dL (5-40); Vitamin D,25 Hydroxy 31.9 ng/mL (30-100); cholesterol:hdl ratio screen 3.83
== END | disposition home or self-care (01) ==
LOC: MFPLAB 15:34
PROVIDERS: PCP Family Medicine; Referring Provider Family Medicine; Visit Provider Family Medicine
DX: E03.8 Other specified hypothyroidism (principal); E78.5 Hyperlipidemia, unspecified
CPT/HCPCS: 36415; 80053; 80061; 82306; 84439; 84443; 85025